=== PATIENT | male | born 1965 | race Caucasian/White ===

== ENCOUNTER 2016-10-23 10:30 | Inpatient (IN) | payer OTHER ==
[~2016-10-23] VITALS: Ht 165.1 cm; Wt 85.6 kg
[~2016-10-23 10:30] MED LIST: TAMS-14 PO
[2016-11-27] VITALS (13 sets, daily range): BP systolic 109–122; BP diastolic 59–73; PULSE 56–64; RESP 6–20; Ht 165.1 cm; Wt 85.6 kg
[2016-11-27] MEDS ORDERED: AMPICILLIN/SULB 3 GM/NS (PMX) 100 ML IVPB ONE (10:00)
[2016-11-27] MEDS ORDERED: SOD CHLORIDE 0.9% 1,000 ML IV SCH (10:00)
[2016-11-27] MEDS ORDERED: SUCCINYLCHOLINE CHLORIDE 100 MG/5 ML SYG IV ONE (12:25)
[2016-11-27] MEDS ORDERED: CEFAZOLIN 1 GM INJ ONE (12:25)
[2016-11-27] MEDS ORDERED: ONDANSETRON 4 MG INJ ONE (12:25)
[2016-11-27] MEDS ORDERED: PROPOFOL 20 ML ONE (12:25)
[2016-11-27] MEDS ORDERED: FENTAnyl 50 MCG/ML VIAL ONE (12:25)
[2016-11-27] MEDS ORDERED: ROCURONIUM 50 MG INJ ONE (12:25)
[2016-11-27] MEDS ORDERED: morphine 1 MG/ML 30 ML (PCA) IV SCH (12:30)
[2016-11-27] MEDS ORDERED: ACETAMINOPHEN 1000MG/100ML IV 100 ML IVPB PRN (12:30)
[2016-11-27] MEDS ORDERED: MEPERIDINE 25 MG INJ IV PRN (13:30)
[2016-11-27] MEDS ORDERED: HYDROmorphONE (0.2 MG/ML) 10ML SYG IV PRN ×2 (13:30)
[2016-11-27] MEDS ORDERED: FENTAnyl 50 MCG/ML VIAL IV PRN ×2 (13:30)
[2016-11-27] MEDS ORDERED: ONDANSETRON 4 MG INJ IV PRN (13:30)
[2016-11-27] MEDS ORDERED: LIDOCAINE 2% JELLY 5 ML ONE (14:24)
[2016-11-27] MEDS: HYDROmorphONE (0.2 MG/ML) 10ML SYG IV PRN ×4 (14:58→15:27)
[2016-11-27] MEDS: D5W-0.45 NACL + KCL 20 MEQ 1,000 ML IV SCH (17:30)
[2016-11-28] VITALS (14 sets, daily range): BP systolic 90–144; BP diastolic 60–76; PULSE 42–80; RESP 16–20
[2016-11-28] MEDS: D5W-0.45 NACL + KCL 20 MEQ 1,000 ML IV SCH ×3 (04:20→12:20)
[2016-11-28] MEDS ORDERED: morphine 10 MG INJ IM PRN (08:30)
[2016-11-28] MEDS ORDERED: SOD CHLORIDE 0.9% 1,000 ML IV ONE (08:30)
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
[2016-11-28 10:52] LABS: INR 1.13; PARTIAL THROMBOPLASTIN TIME 34.2 Sec (25.0-35.0); PROTIME 14.5 Sec (12.2-14.2); PT RATIO 1.1
[2016-11-28 10:53] LABS: CALCIUM 8.4 mg/dl (8.4-10.2); CREATININE 0.71 mg/dl (0.61-1.24); MAGNESIUM 1.7 mg/dl (1.7-2.5); PHOSPHORUS 2.9 mg/dl (2.5-4.9); POTASSIUM 4.4 mmol/L (3.5-5.1)
[2016-11-28 12:25] LABS: ADD SCAN DIFF NO
[2016-11-28 12:31] LABS: BASOPHILS % 0.3 % (0.0-2.0); EOSINOPHILS % 0.3 % (0.0-7.0); HEMATOCRIT 38.1 % (42.0-52.0); HEMOGLOBIN 12.4 g/dl (14.0-18.0); LYMPHOCYTES # 1.5 10^3/ul (0.8-2.9); LYMPHOCYTES % 16.2 % (15.0-51.0); MEAN CORPUSCULAR HEMOGLOBIN 31.2 pg (29.0-33.0); MEAN CORPUSCULAR HGB CONC 32.5 g/dl (32.0-37.0); MEAN CORPUSCULAR VOLUME 95.7 fl (82.0-101.0); MEAN PLATELET VOLUME 10.7 fl (7.4-10.4); MONOCYTE # 0.9 10^3/ul (0.3-0.9); MONOCYTES % 9.8 % (0.0-11.0); NEUTROPHIL # 6.7 10^3/ul (1.6-7.5); NEUTROPHILS % 73.1 % (39.0-77.0); PLATELET COUNT 150 10^3/UL (140-415); RED BLOOD COUNT 3.98 10^6/ul (4.70-6.10); RED CELL DISTRIBUTION WIDTH 13.3 % (11.5-14.5); WHITE BLOOD COUNT 9.2 10^3/ul (4.8-10.8)
--- NOTE | 2016-11-28 12:54 | PN ---
Date/Time of Note Date/Time of Note DATE: 11/28/16 TIME: 12:44 Assessment/Plan VTE Prophylaxis VTE Prophylaxis Intervention: SCD's Lines/Catheters IV Catheter Type (from Nrs): Peripheral IV Assessment/Plan Assessment/Plan 51 years old gentleman. Status post takedown and closure of ileostomy.. This patient had a cancer of the rectum resected in June 2015 because of technical problem of the anastomosis to protect the anastomosis and diverting ileostomy was placed at that time. Being admitted for closure of ileostomy. Today is postop day #1 from other points of view patient is a stable except that has had bradycardia. Php Mysql Web Developer is going to evaluate the patient for this problem. G-tube is in place is draining gastric juice. We will continue NG tube to intermittent suction. Subjective 24 Hr Interval Summary Free Text/Dictation Postop day #1 status post takedown of the ileostomy and closure of the ileostomy. Patient does not have any specific complaint. Has been out of bed to the bathroom and has urinated. Denies nausea vomiting chest pain Apparently has had bradycardia down to 44. Echocardiogram was done tack coverer Dr. Prater going to see the patient for this matter.. Has not had any bowel movement or has not passed any gas. Exam/Review of Systems Vital Signs Vitals Vital Signs Date Time Temp Pulse Resp B/P Pulse Ox O2 Delivery O2 Flow Rate FiO2 11/28/16 08:00 2.0 11/28/16 07:56 98.8 44 16 90/60 97 11/28/16 05:30 Nasal Cannula Intake and Output 11/27/16 11/27/16 11/28/16 15:00 23:00 07:00 Intake Total 1000 ml 1010 ml Output Total 50 ml 5 ml 10 ml Balance 950 ml -5 ml 1000 ml Exam Objective: Patient is alert awake oriented 3. Vital sign is stable of note his heart rate is low at about 44 regular. Abdomen is soft dressing is intact. Epifanio- Early draining serosanguineous fluid. Lower extremity no calf tenderness. SCDs on both legs. Results Result Diagram: 11/28/16 0932 Results 24 hrs Laboratory Tests Test 11/28/16 09:32 11/28/16 12:05 Prothrombin Time 14.5 H Prothrombin Time Ratio 1.1 INR International Normalized Ratio 1.13 Activated Partial Thromboplast Time 34.2 Sodium Level 143 Potassium Level 4.4 Chloride Level 102 Carbon Dioxide Level 28 Anion Gap 17 H Blood Urea Nitrogen 8 Creatinine 0.71 Glucose Level 92 Calcium Level 8.4 Phosphorus Level 2.9 Magnesium Level 1.7 Thyroid Stimulating Hormone (TSH) 3.160 White Blood Count Pending Red Blood Count Pending Hemoglobin Pending Hematocrit Pending Mean Corpuscular Volume Pending Mean Corpuscular Hemoglobin Pending Mean Corpuscular Hemoglobin Concent Pending Red Cell Distribution Width Pending Platelet Count Pending Mean Platelet Volume Pending Medications Medications Current Medications Ondansetron HCl (Zofran Inj) 4 mg Q6H PRN IV NAUSEA AND/OR VOMITING; Start at 12:30 Morphine Sulfate 2 MG/HR CONTINUOUS RATE 2... Q4PCA IV Last administered on 15:27; Admin Dose 30 MG; Start 11/27/16 at 12:30; Status Future Hold Potassium Chloride/Dextrose/ Sod Cl 1,000 ml @ 125 mls/hr Q8H IV Last administered on 11/28/16 04:59; Admin Dose 125 MLS/HR; Start 11/27/16 at 12:20 Acetaminophen (Ofirmev 1000mg/ 100ml Iv) 100 ml @ 400 mls/hr Q6H PRN IVPB PAIN ; Start 11/27/16 at 12:30 Ketorolac Tromethamine (Toradol) 30 mg Q6H PRN IV PAIN; Start 11/28/16 at 08:30 ; Stop 12/01/16 at 08:29 Morphine Sulfate (morphine) 2 mg Q3H PRN IM PAIN 7-10; Start 11/28/16 at 08:30 SANDEE HINDS MD Nov 28, 2016 12:54
--- NOTE | 2016-11-28 17:13 | PN ---
Date/Time of Note Date/Time of Note DATE: 11/28/16 TIME: 17:05 Assessment/Plan VTE Prophylaxis VTE Prophylaxis Intervention: SCD's Lines/Catheters IV Catheter Type (from Nrsg): Peripheral IV Assessment/Plan Chief Complaint/Hosp Course Patient was on a morphine EXTRUDING MACHINE OPERATOR for pain controlled, develop bradycardia to heart related in the 40s, EXTRUDING MACHINE OPERATOR morphine discontinued, given IV bolus BP is stable, patient is transferred to telemetry floor for heart monitoring. Pending cardiac enzymes and twelve-lead EKG. Problems: Assessment/Plan -Bradycardia, Dr. Benoit is following in cardiology consultation, continue telemetry monitoring. -Status post ileostomy reversal by Dr. Hudson on 11/27. Continue morphine and Toradol for pain. Follow-up surgery recommendations. -History of rectal cancer, status post resection, and chemotherapy. -BPH. Further recommendations based on clinical course. Plan of care discussed with Dr. Cho. Exam/Review of Systems Vital Signs Vitals Vital Signs Date Time Temp Pulse Resp B/P Pulse Ox O2 Delivery O2 Flow Rate FiO2 11/28/16 16:11 Nasal Cannula 2.0 11/28/16 16:05 98.8 48 18 111/62 98 Intake and Output 11/27/16 11/27/16 11/28/16 15:00 23:00 07:00 Intake Total 1000 ml 1010 ml Output Total 50 ml 5 ml 10 ml Balance 950 ml -5 ml 1000 ml Exam Constitutional: alert, oriented Head: normocephalic Neck: supple Respiratory: normal air movement Cardiovascular: nl pulses, other (Bradycardia) Gastrointestinal: other (Status post surgery) Extremities: normal pulses Neurological: nl mental status Results Result Diagram: 11/28/16 1205 11/28/16 0932 Results 24 hrs Laboratory Tests Test 11/28/16 09:32 11/28/16 12:05 Prothrombin Time 14.5 H Prothrombin Time Ratio 1.1 INR International Normalized Ratio 1.13 Activated Partial Thromboplast Time 34.2 Sodium Level 143 Potassium Level 4.4 Chloride Level 102 Carbon Dioxide Level 28 Anion Gap 17 H Blood Urea Nitrogen 8 Creatinine 0.71 Glucose Level 92 Calcium Level 8.4 Phosphorus Level 2.9 Magnesium Level 1.7 Thyroid Stimulating Hormone (TSH) 3.160 White Blood Count 9.2 # Red Blood Count 3.98 L Hemoglobin 12.4 L Hematocrit 38.1 L Mean Corpuscular Volume 95.7 Mean Corpuscular Hemoglobin 31.2 Mean Corpuscular Hemoglobin Concent 32.5 Red Cell Distribution Width 13.3 Platelet Count 150 Mean Platelet Volume 10.7 H Neutrophils % 73.1 Lymphocytes % 16.2 Monocytes % 9.8 Eosinophils % 0.3 Basophils % 0.3 Neutrophils # 6.7 Lymphocytes # 1.5 Monocytes # 0.9 Eosinophils # 0.0 Basophils # 0.0 Nucleated Red Blood Cells # 0.0 Medications Medications Current Medications Ondansetron HCl 4 mg 4 mg Q6H PRN IV NAUSEA AND/OR VOMITING; Start 11/27/16 at 12:30 Potassium Chloride/Dextrose/ Sod Cl 1,000 ml @ 125 mls/hr Q8H IV Last administered on 11/28/16t 04:59; Admin Dose 125 MLS/HR; Start 11/27/16 at 12:20 Acetaminophen (Ofirmev 1000mg/ 100ml Iv) 100 ml @ 400 mls/hr Q6H PRN IVPB PAIN ; Start 11/27/16 at 12:30 Ketorolac Tromethamine (Toradol) 30 mg Q6H PRN IV PAIN; Start 11/28/16 at 08:30 ; Stop 12/01/16 at 08:29 Morphine Sulfate (morphine) 2 mg Q3H PRN IM PAIN 7-10; Start 11/28/16 at 08:30 HEAVEN MARRERO Nov 28, 2016 17:13
--- NOTE | 2016-11-28 19:03 | RADRPT ---
Echocardiogram Report Patient Name: JORDY PEOPLES Gender: Male Date: 1965 Study Date: 28-Nov-2016 Necktie Maker: [facility] Location: 601 Ref. Physician: MIKE WOODS Quality: Adequate Procedures: Transthoracic echocardiogram with complete 2D, M-Mode, and doppler examination. Indications: Low HR. 2D/M Mode Doppler Measurement Value Normal Ranges Measurement Value Normal Ranges LVIDd 2D 5.2 3.5 - 5.6 cm AV Peak Moisés 1.5 m/sec LVIDs 2D 3.5 2.1 - 4.1 cm AV Peak PG 9.0 mmHg FS 2D 32.5 % LVOT Peak Moisés 1.2 m/sec LVPWd 2D 1.1 0.6 - 1.1 cm LVOT Peak PG 6.0 mmHg IVSd 2D 1.1 0.6 - 1.1 cm MV E Peak Moisés 0.5 m/sec IVS/LVPW 2D 1.0 MV A Peak Moisés 1.0 m/sec AoR Diam 2D 3.3 2.0 - 3.7 cm MV E/A 0.5 LA/Ao 2D 1 0 - 1 MV Decel Time 296 msec EDV 2D 143.0 cm3 MV E/A 0.5 ESV 2D 44.0 cm3 LA Dimen 2D 4.3 2.3 - 4.0 cm Findings Left Ventricle: Normal left ventricular systolic function. Normal left ventricular cavity size. Normal left ventricular wall thickness. Ejection fraction is visually estimated at 60 %. Abnormal Diastolic Function. Right Ventricle: Normal right ventricular size. Normal right ventricular systolic function. Left Atrium: The left atrium is normal in size. Right Atrium: The right atrium is normal in size. Mitral Valve: Mild mitral leaflet calcification. Mild mitral annular calcification. Trace mitral regurgitation. Aortic Valve: Normal appearance of the aortic valve. No significant aortic stenosis or insufficiency. Tricuspid Valve: Normal appearance and function of the tricuspid valve with trace physiologic regurgitation. Unable to obtain RVSP due to minimal presence of tricuspid regurgitation. Pulmonic Valve: Pulmonic valve not well visualized. There is trace pulmonic regurgitation. Pericardium: Normal pericardium with no significant pericardial effusion. Aorta: Normal aortic root. IVC: Normal size and normal respiratory collapse consistent with normal right atrial pressure. Conclusions 1.Normal left ventricular systolic function. Normal left ventricular cavity size. Normal left ventricular wall thickness. Ejection fraction is visually estimated at 60 %. Abnormal Diastolic Function. 2.Mild mitral leaflet calcification. Mild mitral annular calcification. Trace mitral regurgitation. 3.Normal appearance and function of the tricuspid valve with trace physiologic regurgitation. Unable to obtain RVSP due to minimal presence of tricuspid regurgitation. 4.Pulmonic valve not well visualized. There is trace pulmonic regurgitation. Electronically Signed By: Marty Benoit 28-Nov-2016 19:02:32 -0700 Patient Name: JORDY PEOPLES Study Date: 28-Nov-2016 [id number]
[2016-11-28] MEDS: KETOROLAC 30 MG INJ IV PRN (19:59)
[2016-11-29] VITALS (11 sets, daily range): BP systolic 104–138; BP diastolic 61–72; PULSE 49–58; RESP 17–19
[2016-11-29] MEDS: D5W-0.45 NACL + KCL 20 MEQ 1,000 ML IV SCH ×3 (01:53→22:07)
[2016-11-29] MEDS: KETOROLAC 30 MG INJ IV PRN ×2 (01:53→13:01)
[2016-11-29] MEDS: ONDANSETRON 4 MG INJ IV PRN (06:54)
[2016-11-29 08:39] LABS: WHITE BLOOD COUNT 10.3 10^3/ul (4.8-10.8)
[2016-11-29 08:40] LABS: BASOPHILS % 0.3 % (0.0-2.0); EOSINOPHILS # 0.1 10^3/ul (0.0-0.5); EOSINOPHILS % 0.6 % (0.0-7.0); HEMATOCRIT 42.2 % (42.0-52.0); LYMPHOCYTES # 1.5 10^3/ul (0.8-2.9); LYMPHOCYTES % 14.1 % (15.0-51.0); MEAN CORPUSCULAR HEMOGLOBIN 31.2 pg (29.0-33.0); MEAN CORPUSCULAR HGB CONC 33.2 g/dl (32.0-37.0); MEAN PLATELET VOLUME 12.5 fl (7.4-10.4); MONOCYTES % 9.3 % (0.0-11.0); NEUTROPHIL # 7.7 10^3/ul (1.6-7.5); NEUTROPHILS % 75.4 % (39.0-77.0); PLATELET COUNT 121 10^3/UL (140-415); RED BLOOD COUNT 4.49 10^6/ul (4.70-6.10); RED CELL DISTRIBUTION WIDTH 12.9 % (11.5-14.5)
[2016-11-29 08:56] LABS: CALCIUM 9.2 mg/dl (8.4-10.2); CREATININE 0.72 mg/dl (0.61-1.24); MAGNESIUM 1.9 mg/dl (1.7-2.5); PHOSPHORUS 2.5 mg/dl (2.5-4.9); POTASSIUM 3.9 mmol/L (3.5-5.1)
[2016-11-29 09:12] LABS: INR 1.11; PROTIME 14.3 Sec (12.2-14.2); PT RATIO 1.1
[2016-11-29 09:13] LABS: PARTIAL THROMBOPLASTIN TIME 33.5 Sec (25.0-35.0)
--- NOTE | 2016-11-29 14:46 | CONS ---
Date/Time of Note Date/Time of Note DATE: 11/29/16 TIME: 14:44 Assessment/Plan Assessment/Plan Additional Assessment/Plan Sinus Bradycardia likely from morphine Status post ileostomy reversal History of rectal cancer, status post resection and chemotherapy. BPH. Tele monitor shows sinus bradycardia Avoid sedative and narcotics Consultation Date/Type/Reason Admit Date/Time Nov 27, 2016 at 09:45 Social History Smoking Status: Former smoker Exam/Review of Systems Vital Signs Vitals Vital Signs Date Time Temp Pulse Resp B/P Pulse Ox O2 Delivery O2 Flow Rate FiO2 11/29/16 12:29 58 11/29/16 11:56 99.0 17 131/71 92 11/29/16 08:20 Nasal Cannula 2.0 Intake and Output 11/28/16 11/28/16 11/29/16 15:00 23:00 07:00 Intake Total 1000 ml 82995 ml Output Total 1100 ml Balance 1000 ml 9175 ml Exam Constitutional: alert Head: atraumatic, normocephalic Neck: non-tender, supple Respiratory: clear to auscultation Cardiovascular: regular rate and rhythm Gastrointestinal: nl liver, spleen, non-tender, soft Extremities: normal pulses Results Result Diagram: 11/29/16 0723 11/29/16 0723 Results 24 hrs Laboratory Tests Test 11/28/16 17:50 11/29/16 01:20 11/29/16 06:28 11/29/16 07:23 Troponin I < 0.012 < 0.012 Lab Scanned Report REFERENCE LAB White Blood Count 10.3 Red Blood Count 4.49 L Hemoglobin 14.0 Hematocrit 42.2 Mean Corpuscular Volume 94.0 Mean Corpuscular Hemoglobin 31.2 Mean Corpuscular Hemoglobin Concent 33.2 Red Cell Distribution Width 12.9 Platelet Count 121 L Mean Platelet Volume 12.5 H Neutrophils % 75.4 Lymphocytes % 14.1 L Monocytes % 9.3 Eosinophils % 0.6 Basophils % 0.3 Nucleated Red Blood Cells % 0.0 Neutrophils # 7.7 H Lymphocytes # 1.5 Monocytes # 1.0 H Eosinophils # 0.1 Basophils # 0.0 Nucleated Red Blood Cells # 0.0 Prothrombin Time 14.3 H Prothrombin Time Ratio 1.1 INR International Normalized Ratio 1.11 Activated Partial Thromboplast Time 33.5 Sodium Level 143 Potassium Level 3.9 Chloride Level 100 Carbon Dioxide Level 28 Anion Gap 19 H Blood Urea Nitrogen 5 L Creatinine 0.72 Glucose Level 105 Calcium Level 9.2 Phosphorus Level 2.5 Magnesium Level 1.9 Triglycerides Level 92 Cholesterol Level 176 LDL Cholesterol, Calculated 115 HDL Cholesterol 43 Cholesterol/HDL Ratio 4.0 Medications Medications Current Medications Ondansetron HCl 4 mg 4 mg Q6H PRN IV NAUSEA AND/OR VOMITING Last administered on 11/29/16 06:54; Admin Dose 4 MG; Start 11/27/16 at 12:30 Potassium Chloride/Dextrose/ Sod Cl 1,000 ml @ 125 mls/hr Q8H IV Last administered on 11/29/16 13:01; Admin Dose 125 MLS/HR; Start 11/27/16 at 12:20 Acetaminophen (Ofirmev 1000mg/ 100ml Iv) 100 ml @ 400 mls/hr Q6H PRN IVPB PAIN ; Start 11/27/16 at 12:30 Ketorolac Tromethamine (Toradol) 30 mg Q6H PRN IV PAIN Last administered on 13:01; Admin Dose 30 MG; Start 11/28/16 at 08:30; Stop 12/01/16 at 08:29 Morphine Sulfate (morphine) 2 mg Q3H PRN IM PAIN 7-10; Start 11/28/16 at 08:30 HERMES STRATTON M.D. Nov 29, 2016 14:46
--- NOTE | 2016-11-29 15:01 | PN ---
Date/Time of Note Date/Time of Note DATE: 11/29/16 TIME: 14:47 Assessment/Plan VTE Prophylaxis VTE Prophylaxis Intervention: SCD's Lines/Catheters IV C[facility]ter Type ([facility] Peripheral IV Urinary Cath still in place: No Assessment/Plan Assessment/Plan 51 years old man status post resection and takedown of the loop ileostomy. Postop day #2. Patient has been stable since operation. The NG drainage is not bilious. Today he has past few pieces of gas per rectum. Abdomen is soft. Lab results are stable and no leukocytosis. Plan, to get the patient out of bed. To start ice chips by mouth. Ambulates. Whenever has a bowel movement we are going to then remove the NG tube. Subjective 24 Hr Interval Summary Free Text/Dictation Postop day #2. No new complaints. States that has passed a little bit of gas. No bowel movement has not been out of bed yet but is planning to get him out of bed today. Exam/Review of Systems Vital Signs Vitals Vital Signs Date Time Temp Pulse Resp B/P Pulse Ox O2 Delivery O2 Flow Rate FiO2 11/29/16 12:29 58 11/29/16 11:56 99.0 17 131/71 92 11/29/16 08:20 Nasal Cannula 2.0 Intake and Output 11/28/16 11/28/16 11/29/16 15:00 23:00 07:00 Intake Total 1000 ml 52613 ml Output Total 1100 ml Balance 1000 ml 9175 ml Results Postop day #2. Status post resection and takedown of the ileostomy loop. Vital sign is stable. Still has bradycardia but a little bit better than yesterday. NG tube has drained clear gastric juice. The machine is not functioning I on intermittent suction. Will keep it on 35 suction power continues. Abdomen is soft bowel swelling 2+/4+. Epifanio-Early drain drained 20 cc of serosanguineous fluid in 24 hours. No calf tenderness. S .c.d. in place. Result Diagram: 11/29/1672211/29/16 0723 Results 24 hrs Laboratory Tests Test 11/28/16 17:50 11/29/16 01:20 11/29/16 06:28 11/29/16 07:23 Troponin I < 0.012 < 0.012 Lab Scanned Report REFERENCE LAB White Blood Count 10.3 Red Blood Count 4.49 L Hemoglobin 14.0 Hematocrit 42.2 Mean Corpuscular Volume 94.0 Mean Corpuscular Hemoglobin 31.2 Mean Corpuscular Hemoglobin Concent 33.2 Red Cell Distribution Width 12.9 Platelet Count 121 L Mean Platelet Volume 12.5 H Neutrophils % 75.4 Lymphocytes % 14.1 L Monocytes % 9.3 Eosinophils % 0.6 Basophils % 0.3 Nucleated Red Blood Cells % 0.0 Neutrophils # 7.7 H Lymphocytes # 1.5 Monocytes # 1.0 H Eosinophils # 0.1 Basophils # 0.0 Nucleated Red Blood Cells # 0.0 Prothrombin Time 14.3 H Prothrombin Time Ratio 1.1 INR International Normalized Ratio 1.11 Activated Partial Thromboplast Time 33.5 Sodium Level 143 Potassium Level 3.9 Chloride Level 100 Carbon Dioxide Level 28 Anion Gap 19 H Blood Urea Nitrogen 5 L Creatinine 0.72 Glucose Level 105 Calcium Level 9.2 Phosphorus Level 2.5 Magnesium Level 1.9 Triglycerides Level 92 Cholesterol Level 176 LDL Cholesterol, Calculated 115 HDL Cholesterol 43 Cholesterol/HDL Ratio 4.0 Medications Medications Current Medications Ondansetron HCl 4 mg 4 mg Q6H PRN IV NAUSEA AND/OR VOMITING Last administered on 11/29/16 06:54; Admin Dose 4 MG; Start 11/27/16 at 12:30 Potassium Chloride/Dextrose/ Sod Cl 1,000 ml @ 125 mls/hr Q8H IV Last administered on 11/29/16 13:01; Admin Dose 125 MLS/HR; Start 11/27/16 at 12:20 Acetaminophen (Ofirmev 1000mg/ 100ml Iv) 100 ml @ 400 mls/hr Q6H PRN IVPB PAIN ; Start 11/27/16 at 12:30 Ketorolac Tromethamine (Toradol) 30 mg Q6H PRN IV PAIN Last administered on 13:01; Admin Dose 30 MG; Start 11/28/16 at 08:30; Stop 12/01/16 at 08:29 Morphine Sulfate (morphine) 2 mg Q3H PRN IM PAIN 7-10; Start 11/28/16 at 08:30 SANDEE HINDS MD Nov 29, 2016 14:59
--- NOTE | 2016-11-29 15:53 | PN ---
Date/Time of Note Date/Time of Note DATE: 11/29/16 TIME: 15:52 Assessment/Plan VTE Prophylaxis VTE Prophylaxis Intervention: SCD's Lines/Catheters IV Catheter Type (from Nrsg): Peripheral IV Urinary Cath still in place: No Assessment/Plan Assessment/Plan -Bradycardia, Dr. Benoit is following in cardiology consultation, continue telemetry monitoring. -Status post ileostomy reversal by Dr. Hudson on 11/27. Continue morphine and Toradol for pain. Follow-up surgery recommendations. -History of rectal cancer, status post resection, and chemotherapy. -BPH. Further recommendations based on clinical course. Plan of care discussed with Dr. Cho. Subjective 24 Hr Interval Summary Free Text/Dictation resting, afebrile, denies chest pain, c/o surgical pain at time but beter with pain med- Surgery follows- staff Constitutional: requiring O2 Eyes: no complaints ENT: no complaints Respiratory: no complaints Cardiovascular: no complaints Gastrointestinal: pain (post op pain) Musculoskeletal: no complaints Neurologic: no complaints Exam/Review of Systems Vital Signs Vitals Vital Signs Date Time Temp Pulse Resp B/P Pulse Ox O2 Delivery O2 Flow Rate FiO2 11/29/16 12:29 58 11/29/16 11:56 99.0 17 131/71 92 11/29/16 08:20 Nasal Cannula 2.0 Intake and Output 11/28/16 11/28/16 11/29/16 15:00 23:00 07:00 Intake Total 1000 ml 34307 ml Output Total 1100 ml Balance 1000 ml 9175 ml Exam Constitutional: alert, oriented Respiratory: clear to auscultation, normal air movement Cardiovascular: nl pulses, regular rate and rhythm Gastrointestinal: non-tender, soft Musculoskeletal: nl extremities to inspection Neurological: nl mental status, nl speech Results Result Diagram: 11/29/16 0723 11/29/16 0723 Results 24 hrs Laboratory Tests Test 11/28/16 17:50 11/29/16 01:20 11/29/16 06:28 11/29/16 07:23 Troponin I < 0.012 < 0.012 Lab Scanned Report REFERENCE LAB White Blood Count 10.3 Red Blood Count 4.49 L Hemoglobin 14.0 Hematocrit 42.2 Mean Corpuscular Volume 94.0 Mean Corpuscular Hemoglobin 31.2 Mean Corpuscular Hemoglobin Concent 33.2 Red Cell Distribution Width 12.9 Platelet Count 121 L Mean Platelet Volume 12.5 H Neutrophils % 75.4 Lymphocytes % 14.1 L Monocytes % 9.3 Eosinophils % 0.6 Basophils % 0.3 Nucleated Red Blood Cells % 0.0 Neutrophils # 7.7 H Lymphocytes # 1.5 Monocytes # 1.0 H Eosinophils # 0.1 Basophils # 0.0 Nucleated Red Blood Cells # 0.0 Prothrombin Time 14.3 H Prothrombin Time Ratio 1.1 INR International Normalized Ratio 1.11 Activated Partial Thromboplast Time 33.5 Sodium Level 143 Potassium Level 3.9 Chloride Level 100 Carbon Dioxide Level 28 Anion Gap 19 H Blood Urea Nitrogen 5 L Creatinine 0.72 Glucose Level 105 Calcium Level 9.2 Phosphorus Level 2.5 Magnesium Level 1.9 Triglycerides Level 92 Cholesterol Level 176 LDL Cholesterol, Calculated 115 HDL Cholesterol 43 Cholesterol/HDL Ratio 4.0 Medications Medications Current Medications Ondansetron HCl 4 mg 4 mg Q6H PRN IV NAUSEA AND/OR VOMITING Last administered on 11/29/16 06:54; Admin Dose 4 MG; Start 11/27/16 at 12:30 Potassium Chloride/Dextrose/ Sod Cl 1,000 ml @ 125 mls/hr Q8H IV Last administered on 11/29/16 13:01; Admin Dose 125 MLS/HR; Start 11/27/16 at 12:20 Acetaminophen (Ofirmev 1000mg/ 100ml Iv) 100 ml @ 400 mls/hr Q6H PRN IVPB PAIN ; Start 11/27/16 at 12:30 Ketorolac Tromethamine (Toradol) 30 mg Q6H PRN IV PAIN Last administered on 13:01; Admin Dose 30 MG; Start 11/28/16 at 08:30; Stop 12/01/16 at 08:29 Morphine Sulfate (morphine) 2 mg Q3H PRN IM PAIN 7-10; Start 11/28/16 at 08:30 KIMBERLEE SPEARS Nov 29, 2016 15:53
[2016-11-30] VITALS (12 sets, daily range): BP systolic 101–135; BP diastolic 59–74; PULSE 48–71; RESP 16–18
[2016-11-30] MEDS: D5W-0.45 NACL + KCL 20 MEQ 1,000 ML IV SCH ×3 (06:04→14:40)
[2016-11-30 06:43] LABS: BASOPHILS % 0.3 % (0.0-2.0); EOSINOPHILS # 0.1 10^3/ul (0.0-0.5); EOSINOPHILS % 0.4 % (0.0-7.0); HEMATOCRIT 42.3 % (42.0-52.0); HEMOGLOBIN 14.2 g/dl (14.0-18.0); LYMPHOCYTES # 1.5 10^3/ul (0.8-2.9); LYMPHOCYTES % 12.2 % (15.0-51.0); MEAN CORPUSCULAR HEMOGLOBIN 31.1 pg (29.0-33.0); MEAN CORPUSCULAR HGB CONC 33.6 g/dl (32.0-37.0); MEAN CORPUSCULAR VOLUME 92.8 fl (82.0-101.0); MEAN PLATELET VOLUME 12.9 fl (7.4-10.4); MONOCYTE # 1.1 10^3/ul (0.3-0.9); MONOCYTES % 8.9 % (0.0-11.0); NEUTROPHIL # 9.3 10^3/ul (1.6-7.5); NEUTROPHILS % 77.9 % (39.0-77.0); PLATELET COUNT 100 10^3/UL (140-415); RED BLOOD COUNT 4.56 10^6/ul (4.70-6.10); RED CELL DISTRIBUTION WIDTH 12.7 % (11.5-14.5); WHITE BLOOD COUNT 11.9 10^3/ul (4.8-10.8)
[2016-11-30 07:19] LABS: CALCIUM 8.9 mg/dl (8.4-10.2); CREATININE 0.77 mg/dl (0.61-1.24); POTASSIUM 3.6 mmol/L (3.5-5.1)
[2016-11-30] MEDS: ONDANSETRON 4 MG INJ IV PRN ×2 (08:17→14:39)
[2016-11-30 12:10] LABS: ABNORMAL IP MESSAGE 1; BASOPHILS % 0.3 % (0.0-2.0); EOSINOPHILS % 0.2 % (0.0-7.0); HEMATOCRIT 41.2 % (42.0-52.0); HEMOGLOBIN 14.3 g/dl (14.0-18.0); LYMPHOCYTES # 1.2 10^3/ul (0.8-2.9); MEAN CORPUSCULAR HEMOGLOBIN 31.4 pg (29.0-33.0); MEAN CORPUSCULAR HGB CONC 34.7 g/dl (32.0-37.0); MEAN CORPUSCULAR VOLUME 90.5 fl (82.0-101.0); MEAN PLATELET VOLUME 12.7 fl (7.4-10.4); NEUTROPHIL # 9.8 10^3/ul (1.6-7.5); NEUTROPHILS % 81.1 % (39.0-77.0); PLATELET COUNT 91 10^3/UL (140-415); POSITIVE DIFF @See below; RED BLOOD COUNT 4.55 10^6/ul (4.70-6.10); RED CELL DISTRIBUTION WIDTH 12.4 % (11.5-14.5)
[2016-11-30 12:31] LABS: INR 1.11; PROTIME 14.3 Sec (12.2-14.2); PT RATIO 1.1
[2016-11-30 12:32] LABS: PARTIAL THROMBOPLASTIN TIME 32.1 Sec (25.0-35.0)
[2016-11-30 12:33] LABS: CREATININE 0.71 mg/dl (0.61-1.24); MAGNESIUM 1.7 mg/dl (1.7-2.5); PHOSPHORUS 2.8 mg/dl (2.5-4.9); POTASSIUM 3.8 mmol/L (3.5-5.1)
--- NOTE | 2016-11-30 13:12 | PN ---
Date/Time of Note Date/Time of Note DATE: 11/30/16 TIME: 13:11 Assessment/Plan VTE Prophylaxis VTE Prophylaxis Intervention: other Lines/Catheters IV Catheter Type (from [facility]): Peripheral IV Urinary Cath still in place: No Assessment/Plan Assessment/Plan -Bradycardia, Dr. Benoit is following in cardiology consultation, continue telemetry monitoring. -Status post ileostomy reversal by Dr. Hudson on 11/27. Continue morphine and Toradol for pain. Follow-up surgery recommendations. -History of rectal cancer, status post resection, and chemotherapy. -BPH. Further recommendations based on clinical course. Plan of care discussed with Dr. Cho. Subjective 24 Hr Interval Summary Respiratory: no complaints Cardiovascular: no complaints Gastrointestinal: pain Musculoskeletal: no complaints Skin: other Exam/Review of Systems Vital Signs Vitals Vital Signs Date Time Temp Pulse Resp B/P Pulse Ox O2 Delivery O2 Flow Rate FiO2 11/30/16 12:31 56 11/30/16 11:47 97.7 16 135/74 93 11/30/16 07:45 Nasal Cannula 2.0 Intake and Output 11/29/16 11/29/16 11/30/16 15:00 23:00 07:00 Intake Total 1000 ml 1520 ml 1200 ml Output Total 1205 ml 1357 ml Balance 1000 ml 315 ml -157 ml Exam Constitutional: alert, oriented, well developed Respiratory: clear to auscultation, normal air movement Cardiovascular: nl pulses, regular rate and rhythm Gastrointestinal: other (SP SURGERY), soft Musculoskeletal: nl extremities to inspection Extremities: normal pulses Skin: other Results Result Diagram: 11/30/16 1145 11/30/16 1145 Results 24 hrs Laboratory Tests Test 11/30/16 05:46 11/30/16 11:45 White Blood Count 11.9 H 12.0 H Red Blood Count 4.56 L 4.55 L Hemoglobin 14.2 14.3 Hematocrit 42.3 41.2 L Mean Corpuscular Volume 92.8 90.5 Mean Corpuscular Hemoglobin 31.1 31.4 Mean Corpuscular Hemoglobin Concent 33.6 34.7 Red Cell Distribution Width 12.7 12.4 Platelet Count 100 L 91 L Mean Platelet Volume 12.9 H 12.7 H Neutrophils % 77.9 H 81.1 H Lymphocytes % 12.2 L 10.0 L Monocytes % 8.9 8.0 Eosinophils % 0.4 0.2 Basophils % 0.3 0.3 Nucleated Red Blood Cells % 0.0 0.0 Neutrophils # 9.3 H 9.8 H Lymphocytes # 1.5 1.2 Monocytes # 1.1 H 1.0 H Eosinophils # 0.1 0.0 Basophils # 0.0 0.0 Nucleated Red Blood Cells # 0.0 0.0 Sodium Level 143 142 Potassium Level 3.6 3.8 Chloride Level 102 102 Carbon Dioxide Level 28 26 Anion Gap 17 H 18 H Blood Urea Nitrogen 4 L 3 L Creatinine 0.77 0.71 Glucose Level 120 125 Calcium Level 8.9 9.0 Prothrombin Time 14.3 H Prothrombin Time Ratio 1.1 INR International Normalized Ratio 1.11 Activated Partial Thromboplast Time 32.1 Phosphorus Level 2.8 Magnesium Level 1.7 Medications Medications Current Medications Ondansetron HCl 4 mg 4 mg Q6H PRN IV NAUSEA AND/OR VOMITING Last administered on 11/30/16 08:17; Admin Dose 4 MG; Start 11/27/16 at 12:30 Potassium Chloride/Dextrose/ Sod Cl 1,000 ml @ 125 mls/hr Q8H IV Last administered on 11/30/16 06:04; Admin Dose 125 MLS/HR; Start 11/27/16 at 12:20 Acetaminophen (Ofirmev 1000mg/ 100ml Iv) 100 ml @ 400 mls/hr Q6H PRN IVPB PAIN Last administered on 11/29/16 20:17; Admin Dose 400 MLS/HR; Start at 12:30 Ketorolac Tromethamine (Toradol) 30 mg Q6H PRN IV PAIN Last administered on 13:01; Admin Dose 30 MG; Start 11/28/16 at 08:30; Stop 12/01/16 at 08:29 Morphine Sulfate (morphine) 2 mg Q3H PRN IM PAIN 7-10 Last administered on 11/30 10:49; Admin Dose 2 MG; Start 11/28/16 at 08:30 KIMBERLEE SPEARS Nov 30, 2016 13:12
--- NOTE | 2016-11-30 13:19 | CONS ---
Date/Time of Note Date/Time of Note DATE: 11/30/16 TIME: 13:18 Assessment/Plan Assessment/Plan Additional Assessment/Plan Sinus Bradycardia likely from morphine Status post ileostomy reversal History of rectal cancer, status post resection and chemotherapy. BPH. Tele monitor shows sinus bradycardia Hemodynamically stable Avoid sedative and narcotics Consultation Date/Type/Reason Admit Date/Time Nov 27, 2016 at 09:45 Initial Consult Date Exam/Review of Systems Vital Signs Vitals Vital Signs Date Time Temp Pulse Resp B/P Pulse Ox O2 Delivery O2 Flow Rate FiO2 11/30/16 12:31 56 11/30/16 11:47 97.7 16 135/74 93 11/30/16 07:45 Nasal Cannula 2.0 Intake and Output 11/29/16 11/29/16 11/30/16 15:00 23:00 07:00 Intake Total 1000 ml 1520 ml 1200 ml Output Total 1205 ml 1357 ml Balance 1000 ml 315 ml -157 ml Exam Head: atraumatic, normocephalic Neck: non-tender, supple Respiratory: clear to auscultation Cardiovascular: regular rate and rhythm Gastrointestinal: nl liver, spleen, non-tender, soft Extremities: normal pulses Results Result Diagram: 11/30/16 1145 11/30/16 1145 Results 24 hrs Laboratory Tests Test 11/30/16 05:46 11/30/16 11:45 White Blood Count 11.9 H 12.0 H Red Blood Count 4.56 L 4.55 L Hemoglobin 14.2 14.3 Hematocrit 42.3 41.2 L Mean Corpuscular Volume 92.8 90.5 Mean Corpuscular Hemoglobin 31.1 31.4 Mean Corpuscular Hemoglobin Concent 33.6 34.7 Red Cell Distribution Width 12.7 12.4 Platelet Count 100 L 91 L Mean Platelet Volume 12.9 H 12.7 H Neutrophils % 77.9 H 81.1 H Lymphocytes % 12.2 L 10.0 L Monocytes % 8.9 8.0 Eosinophils % 0.4 0.2 Basophils % 0.3 0.3 Nucleated Red Blood Cells % 0.0 0.0 Neutrophils # 9.3 H 9.8 H Lymphocytes # 1.5 1.2 Monocytes # 1.1 H 1.0 H Eosinophils # 0.1 0.0 Basophils # 0.0 0.0 Nucleated Red Blood Cells # 0.0 0.0 Sodium Level 143 142 Potassium Level 3.6 3.8 Chloride Level 102 102 Carbon Dioxide Level 28 26 Anion Gap 17 H 18 H Blood Urea Nitrogen 4 L 3 L Creatinine 0.77 0.71 Glucose Level 120 125 Calcium Level 8.9 9.0 Prothrombin Time 14.3 H Prothrombin Time Ratio 1.1 INR International Normalized Ratio 1.11 Activated Partial Thromboplast Time 32.1 Phosphorus Level 2.8 Magnesium Level 1.7 Medications Medications Current Medications Ondansetron HCl 4 mg 4 mg Q6H PRN IV NAUSEA AND/OR VOMITING Last administered on 11/30/16 08:17; Admin Dose 4 MG; Start 11/27/16 at 12:30 Potassium Chloride/Dextrose/ Sod Cl 1,000 ml @ 125 mls/hr Q8H IV Last administered on 11/30/16 06:04; Admin Dose 125 MLS/HR; Start 11/27/16 at 12:20 Acetaminophen (Ofirmev 1000mg/ 100ml Iv) 100 ml @ 400 mls/hr Q6H PRN IVPB PAIN Last administered on 11/29/16 20:17; Admin Dose 400 MLS/HR; Start at 12:30 Ketorolac Tromethamine (Toradol) 30 mg Q6H PRN IV PAIN Last administered on 13:01; Admin Dose 30 MG; Start 11/28/16 at 08:30; Stop 12/01/16 at 08:29 Morphine Sulfate (morphine) 2 mg Q3H PRN IM PAIN 7-10 Last administered on 11/30 10:49; Admin Dose 2 MG; Start 11/28/16 at 08:30 HERMES STRATTON M.D. Nov 30, 2016 13:19
--- NOTE | 2016-11-30 14:03 | PN ---
Date/Time of Note Date/Time of Note DATE: 11/30/16 TIME: 13:56 Assessment/Plan VTE Prophylaxis VTE Prophylaxis Intervention: SCD's Lines/Catheters [facility]ter Type (from [facility]): Peripheral IV Urinary Cath still in place: No Assessment/Plan Assessment/Plan 51-year-old gentleman status post closure of ileostomy postop day #3. GI function has not come back yet no bowel movement no real flatus. . Considering leukocytosis and temperatures up to 99.9 I am planning to start patient on antibiotics. . Keep NG tube in place. . And the nurse was advised to make sure that the patient gets out of bed and walks around. Subjective 24 Hr Interval Summary Free Text/Dictation Today's November 30, 2016. Postop day #3. Status post takedown of the ileostomy and end to end anastomosis. No other specific complaint. States that today morning past minimal amount of gas. Exam/Review of Systems Vital Signs Vitals Vital Signs Date Time Temp Pulse Resp B/P Pulse Ox O2 Delivery O2 Flow Rate FiO2 11/30/16 12:31 56 11/30/16 11:47 97.7 16 135/74 93 11/30/16 07:45 Nasal Cannula 2.0 Intake and Output 11/29/16 11/29/16 11/30/16 15:00 23:00 07:00 Intake Total 1000 ml 1520 ml 1200 ml Output Total 1205 ml 1357 ml Balance 1000 ml 315 ml -157 ml Exam Postop day #3. Patient alert awake oriented 3. Temperature maximum 99.9 today. WBC increased to 12,200 with 81% neutrophils. . NG tube draining gastric juice collarless. Heart rate 56 regular. Abdomen soft no guarding. Lower extremities no calf tenderness. SCDs are on. Results Result Diagram: 11/30/16 1145 11/30/16 1145 Results 24 hrs Laboratory Tests Test 11/30/16 05:46 11/30/16 11:45 White Blood Count 11.9 H 12.0 H Red Blood Count 4.56 L 4.55 L Hemoglobin 14.2 14.3 Hematocrit 42.3 41.2 L Mean Corpuscular Volume 92.8 90.5 Mean Corpuscular Hemoglobin 31.1 31.4 Mean Corpuscular Hemoglobin Concent 33.6 34.7 Red Cell Distribution Width 12.7 12.4 Platelet Count 100 L 91 L Mean Platelet Volume 12.9 H 12.7 H Neutrophils % 77.9 H 81.1 H Lymphocytes % 12.2 L 10.0 L Monocytes % 8.9 8.0 Eosinophils % 0.4 0.2 Basophils % 0.3 0.3 Nucleated Red Blood Cells % 0.0 0.0 Neutrophils # 9.3 H 9.8 H Lymphocytes # 1.5 1.2 Monocytes # 1.1 H 1.0 H Eosinophils # 0.1 0.0 Basophils # 0.0 0.0 Nucleated Red Blood Cells # 0.0 0.0 Sodium Level 143 142 Potassium Level 3.6 3.8 Chloride Level 102 102 Carbon Dioxide Level 28 26 Anion Gap 17 H 18 H Blood Urea Nitrogen 4 L 3 L Creatinine 0.77 0.71 Glucose Level 120 125 Calcium Level 8.9 9.0 Prothrombin Time 14.3 H Prothrombin Time Ratio 1.1 INR International Normalized Ratio 1.11 Activated Partial Thromboplast Time 32.1 Phosphorus Level 2.8 Magnesium Level 1.7 Medications Medications Current Medications Ondansetron HCl 4 mg 4 mg Q6H PRN IV NAUSEA AND/OR VOMITING Last administered on 11/30/16 08:17; Admin Dose 4 MG; Start 11/27/16 at 12:30 Potassium Chloride/Dextrose/ Sod Cl 1,000 ml @ 125 mls/hr Q8H IV Last administered on 11/30/16 06:04; Admin Dose 125 MLS/HR; Start 11/27/16 at 12:20 Acetaminophen (Ofirmev 1000mg/ 100ml Iv) 100 ml @ 400 mls/hr Q6H PRN IVPB PAIN Last administered on 11/29/16 20:17; Admin Dose 400 MLS/HR; Start at 12:30 Ketorolac Tromethamine (Toradol) 30 mg Q6H PRN IV PAIN Last administered on 13:01; Admin Dose 30 MG; Start 11/28/16 at 08:30; Stop 12/01/16 at 08:29 Morphine Sulfate (morphine) 2 mg Q3H PRN IM PAIN 7-10 Last administered on 11/30 10:49; Admin Dose 2 MG; Start 11/28/16 at 08:30 SANDEE HINDS MD Nov 30, 2016 14:03
[2016-11-30] MEDS: PIPER-TAZO 3.375 GM IV (PMX) 100 ML IVPB SCH ×3 (14:39→23:30)
[2016-11-30] MEDS: KETOROLAC 30 MG INJ IV PRN ×2 (15:14→23:05)
[2016-12-01] VITALS (12 sets, daily range): BP systolic 106–132; BP diastolic 57–72; PULSE 53–72; RESP 16–57
[2016-12-01] MEDS: D5W-0.45 NACL + KCL 20 MEQ 1,000 ML IV SCH ×5 (00:40→19:32)
--- NOTE | 2016-12-01 04:46 | OPR ---
DATE OF OPERATION: 11/27/2016 PREOPERATIVE DIAGNOSIS: History of rectal cancer, need for ileostomy reversal. POSTOPERATIVE DIAGNOSIS: History of rectal cancer, need for ileostomy reversal. OPERATION PERFORMED: Reversal of ileostomy with resection of a portion of small bowel. SURGEON: Elder Hudson MD. SURGICAL ASSISTANT: Kalen Collado MD. ANESTHESIA: General. ANESTHESIOLOGIST: Jorge Saini MD. INDICATIONS FOR PROCEDURE: The patient is a 51-year-old male who I had previously treated for a low rectal cancer. He underwent a low anterior resection and a diverting ileostomy several months ago. He was now requesting reversal of his ileostomy. A previous barium enema revealed no obvious leak. Therefore the patient was counseled as to the benefits of ileostomy reversal. He consented and was scheduled for surgery. DESCRIPTION OF PROCEDURE: The patient was brought into the operating theater and placed under general anesthesia. The abdomen was shaved, prepped and draped in the usual sterile fashion. The ileostomy site was sutured closed with a 2-0 Prolene suture. A elliptical incision was then made around the skin of the ileostomy site. Subcutaneous tissue was dissected with cautery. Large circumferential dissection of the ileostomy site took place down to the abdominal wall fascia. The fascia was incised as was the underlying peritoneum and with meticulous dissection adhesions were taken down until the ostomy site was circumferentially free of the abdominal wall. Portions of the proximal and distal ilium were then gently mobilized and brought further through the ostomy site, this allowed good visualization of portions of bowel suitable for anastomosis. The bowel was then cleared of its mesentery both proximal and distal to the ostomy site, and the mesentery was sequentially transected with the LigaSure device. At this point dual enterotomies were made and anastomosis was created using the ROSAURA stapler. The portion of bowel associated with the proximal and distal portion of the ostomy site was then transected with cautery. Significant bleeding was controlled with the LigaSure device. The ileostomy site was then sent for permanent pathologic analysis. The staple line was inspected and minimal bleeding was controlled with cautery. The anastomosis was then completed with a TA stapler without difficulty. A small rent in the mesentery was then reapproximated with 3-0 silk pop-off sutures in standard fashion. The bowel was inspected. The anastomosis was deemed adequate. The bowel was viable. It was thus returned to the abdominal domain, and the fascia of the ostomy site was then reapproximated with 0 looped Prolene sutures in running fashion. The wound was then irrigated with Betadine. Dr. Hudson made an incision and placed a 7 flat Epifanio-Early drain into the wound cavity to prevent infection or abscess formation. The drain was cut to size, laid within the cavity and the drain was then secured in place with 2-0 nylon suture in standard fashion. The skin was then reapproximated with 2-0 nylon sutures in vertical mattress fashion. The patient tolerated the procedure well. The estimated blood loss was 30 mL. There were no complications and the patient was transported in stable condition to the recovery room. Dictated By: Elder Hudson MD /nhi/karolina /Document#: [id number]
[2016-12-01] MEDS: PIPER-TAZO 3.375 GM IV (PMX) 100 ML IVPB SCH ×3 (05:27→18:12)
[2016-12-01 07:29] LABS: BASOPHIL # 0.1 10^3/ul (0.0-0.1); BASOPHILS % 0.5 % (0.0-2.0); EOSINOPHILS # 0.1 10^3/ul (0.0-0.5); EOSINOPHILS % 1.1 % (0.0-7.0); HEMATOCRIT 40.1 % (42.0-52.0); HEMOGLOBIN 13.8 g/dl (14.0-18.0); LYMPHOCYTES # 1.3 10^3/ul (0.8-2.9); MEAN CORPUSCULAR HEMOGLOBIN 31.2 pg (29.0-33.0); MEAN CORPUSCULAR HGB CONC 34.4 g/dl (32.0-37.0); MEAN CORPUSCULAR VOLUME 90.7 fl (82.0-101.0); MONOCYTE # 1.2 10^3/ul (0.3-0.9); MONOCYTES % 9.2 % (0.0-11.0); NEUTROPHIL # 9.9 10^3/ul (1.6-7.5); NEUTROPHILS % 78.8 % (39.0-77.0); POSITIVE DIFF @See below; RED BLOOD COUNT 4.42 10^6/ul (4.70-6.10); RED CELL DISTRIBUTION WIDTH 12.8 % (11.5-14.5); WHITE BLOOD COUNT 12.5 10^3/ul (4.8-10.8)
[2016-12-01 07:42] LABS: PLATELET COUNT 141 10^3/UL (140-415)
[2016-12-01 07:52] LABS: CALCIUM 8.8 mg/dl (8.4-10.2); CREATININE 0.87 mg/dl (0.61-1.24); POTASSIUM 3.4 mmol/L (3.5-5.1)
[2016-12-01] MEDS: KETOROLAC 30 MG INJ IV PRN (08:07)
--- NOTE | 2016-12-01 14:11 | CONS ---
Date/Time of Note Date/Time of Note DATE: 12/01/16 TIME: 14:08 Assessment/Plan Assessment/Plan Chief Complaint/Hosp Course IMP: 1.BRadycardia-mainly in 50's with stable BP 2.abnl ecg-negative trop's/NL EF 3.s/p reversal of illeostomy 4. H/O colon ca REcc: -Tele -Follow BP/HR closely -Continue abx's and f/u cx data Problems: Consultation Date/Type/Reason Admit Date/Time Nov 27, 2016 at 09:45 Initial Consult Date 11/28/2016 Type of Consultation: cardiology Reason for Consultation Bradycardia Referring Provider: MIKE WOODS MD Exam/Review of Systems Vital Signs Vitals Vital Signs Date Time Temp Pulse Resp B/P Pulse Ox O2 Delivery O2 Flow Rate FiO2 12/01/16 12:30 66 12/01/16 11:47 99.0 18 106/61 94 12/01/16 08:17 Nasal Cannula 2.0 Intake and Output 11/30/16 11/30/16 12/01/16 15:00 23:00 07:00 Intake Total 1100 ml 675 ml 915 ml Output Total 200 ml 1700 ml 300 ml Balance 900 ml -1025 ml 615 ml Exam Review of Systems: CONSTITUTIONAL: No fevers, chills. PULMONARY: No sob CARDIOVASCULAR: No chest pain/palpitations GASTROINTESTINAL: No nausea/vomiting. GENITOURINARY: No hematuria/dysuria. MUSCULOSKELETAL: No myagias/arthalgias. PSYCHIATRIC: The patient denies depression. NEUROLOGIC: letharguic Constitutional: alert Psych: no complaints Head: normocephalic Neck: jvd, supple Respiratory: diminished breath sounds (at bases/B) Cardiovascular: other (bradycardia) Gastrointestinal: other (covered by dressing), soft Extremities: edema (none) Neurological: other (NO focal deficits) Results Result Diagram: 12/01/16 0706 12/01/16 0706 Results 24 hrs Laboratory Tests Test 12/01/16 07:06 White Blood Count 12.5 H Red Blood Count 4.42 L Hemoglobin 13.8 L Hematocrit 40.1 L Mean Corpuscular Volume 90.7 Mean Corpuscular Hemoglobin 31.2 Mean Corpuscular Hemoglobin Concent 34.4 Red Cell Distribution Width 12.8 Platelet Count 141 # Mean Platelet Volume 12.0 H Neutrophils % 78.8 H Lymphocytes % 10.0 L Monocytes % 9.2 Eosinophils % 1.1 Basophils % 0.5 Nucleated Red Blood Cells % 0.0 Neutrophils # 9.9 H Lymphocytes # 1.3 Monocytes # 1.2 H Eosinophils # 0.1 Basophils # 0.1 Nucleated Red Blood Cells # 0.0 Sodium Level 142 Potassium Level 3.4 L Chloride Level 102 Carbon Dioxide Level 28 Anion Gap 15 Blood Urea Nitrogen 6 L Creatinine 0.87 Glucose Level 135 Calcium Level 8.8 Medications Medications Current Medications Ondansetron HCl 4 mg 4 mg Q6H PRN IV NAUSEA AND/OR VOMITING Last administered on 11/30/16 14:39; Admin Dose 4 MG; Start 11/27/16 at 12:30 Potassium Chloride/Dextrose/ Sod Cl 1,000 ml @ 125 mls/hr Q8H IV Last administered on 12/01/16 10:01; Admin Dose 125 MLS/HR; Start 11/27/16 at 12:20 Acetaminophen (Ofirmev 1000mg/ 100ml Iv) 100 ml @ 400 mls/hr Q6H PRN IVPB PAIN Last administered on 11/29/16 20:17; Admin Dose 400 MLS/HR; Start at 12:30 Morphine Sulfate 2 mg 2 mg Q3H PRN IM PAIN 7-10 Last administered on 11/30/16 10:49; Admin Dose 2 MG; Start 11/28/16 at 08:30 Piperacillin Sod/ Tazobactam Sod (Zosyn 3.375gm/ 100 ml (Pmx)) 100 ml @ 200 mls /hr Q6 IVPB Last administered on 12/01/16 11:57; Admin Dose 200 MLS/HR; Start 11/30/16 at 14:30 CLAY HARDY Dec 01, 2016 14:11
[2016-12-01] MEDS: morphine 2 MG INJ IV PRN (15:19)
[2016-12-01] MEDS ORDERED: morphine 4 MG/ML VIAL IV PRN (15:30)
[2016-12-01] MEDS ORDERED: morphine 4 MG/ML VIAL IM PRN (15:30)
--- NOTE | 2016-12-01 15:53 | RADRPT ---
Vent Rate: 52 bpm RR Interval: 0 msec DE Interval: 146 msec QRS Duration: 100 msec QT Interval: 458 msec QTC Interval: 425 msec P-R-T [place]: 47 - 82 - 48 degrees Sinus bradycardia Otherwise normal ECG Electronically Signed By: Marty Benoit [id number]
--- NOTE | 2016-12-01 16:25 | PN ---
Date/Time of Note Date/Time of Note DATE: 12/01/16 TIME: 16:16 Assessment/Plan VTE Prophylaxis VTE Prophylaxis Intervention: SCD's Lines/Catheters [facility] (from [facility]): Peripheral IV Urinary Cath still in place: No Assessment/Plan Assessment/Plan Postop day #4 status post resection and closure of the ileostomy. Patient has had 2 bowel movements and passing gas today. NG tube drainage is not bilious. Abdomen is soft. Plan,: #1 DC NG tube and actually I did DC the NG tube. Patient may have cups of tea and water. The RN was reminded to make sure the patient ambulates on the floor. We will repeat CBC for tomorrow. The cause of the leukocytosis is not clear. Subjective 24 Hr Interval Summary Free Text/Dictation Postop day #4. Patient states that today he had 2 bowel movement liquid type. Complaining of the sore throat on the right side he thinks that is due to the NG tube. Has been out of bed sitting in chair for a while. Exam/Review of Systems Vital Signs Vitals Vital Signs Date Time Temp Pulse Resp B/P Pulse Ox O2 Delivery O2 Flow Rate FiO2 12/01/16 15:46 98.1 54 17 129/72 93 12/01/16 08:17 Nasal Cannula 2.0 Intake and Output 11/30/16 11/30/16 12/01/16 15:00 23:00 07:00 Intake Total 1100 ml 675 ml 915 ml Output Total 200 ml 1700 ml 300 ml Balance 900 ml -1025 ml 615 ml Exam Postop day #4. Vital signs stable. Temperature max 99.1 today. WBC 12,400. 78% segmented. Hemoglobin hematocrit is stable. BUN/creatinine sodium-potassium stable. Drainage from NG tube is is gastric juice. Is not bilious. Epifanio-Early right lower quadrant abdomen 16 cc serosanguineous. Abdomen is soft dressing intact bowel sound is 3+/4+. Results Result Diagram: 12/01/16 0712/01/16 0706 Results 24 hrs Laboratory Tests Test 12/01/16 07:06 White Blood Count 12.5 H Red Blood Count 4.42 L Hemoglobin 13.8 L Hematocrit 40.1 L Mean Corpuscular Volume 90.7 Mean Corpuscular Hemoglobin 31.2 Mean Corpuscular Hemoglobin Concent 34.4 Red Cell Distribution Width 12.8 Platelet Count 141 # Mean Platelet Volume 12.0 H Neutrophils % 78.8 H Lymphocytes % 10.0 L Monocytes % 9.2 Eosinophils % 1.1 Basophils % 0.5 Nucleated Red Blood Cells % 0.0 Neutrophils # 9.9 H Lymphocytes # 1.3 Monocytes # 1.2 H Eosinophils # 0.1 Basophils # 0.1 Nucleated Red Blood Cells # 0.0 Sodium Level 142 Potassium Level 3.4 L Chloride Level 102 Carbon Dioxide Level 28 Anion Gap 15 Blood Urea Nitrogen 6 L Creatinine 0.87 Glucose Level 135 Calcium Level 8.8 Medications Medications Current Medications Ondansetron HCl 4 mg 4 mg Q6H PRN IV NAUSEA AND/OR VOMITING Last administered on 11/30/16 14:39; Admin Dose 4 MG; Start 11/27/16 at 12:30 Potassium Chloride/Dextrose/ Sod Cl 1,000 ml @ 125 mls/hr Q8H IV Last administered on 12/01/16 10:01; Admin Dose 125 MLS/HR; Start 11/27/16 at 12:20 Acetaminophen (Ofirmev 1000mg/ 100ml Iv) 100 ml @ 400 mls/hr Q6H PRN IVPB PAIN Last administered on 11/29/16 20:17; Admin Dose 400 MLS/HR; Start at 12:30 Morphine Sulfate 2 mg 2 mg Q3H PRN IM PAIN 7-10 Last administered on 11/30/16 10:49; Admin Dose 2 MG; Start 11/28/16 at 08:30 Piperacillin Sod/ Tazobactam Sod (Zosyn 3.375gm/ 100 ml (Pmx)) 100 ml @ 200 mls /hr Q6 IVPB Last administered on 12/01/16 11:57; Admin Dose 200 MLS/HR; Start 11/30/16 at 14:30 Morphine Sulfate (morphine) 2 mg Q4H PRN IV PAIN SCALE 4-6 Last administered on 12/01/16 15:19; Admin Dose 2 MG; Start 12/01/16 at 15:30 Morphine Sulfate (morphine) 4 mg Q4H PRN IV PAIN SCALE 7-10; Start 12/01/16 at 15:30 SANDEE HINDS MD Dec 01, 2016 16:25
--- NOTE | 2016-12-01 18:47 | PN ---
Date/Time of Note Date/Time of Note DATE: 12/01/16 TIME: 18:43 Assessment/Plan VTE Prophylaxis VTE Prophylaxis Intervention: SCD's Lines/Catheters [facility] Peripheral IV Urinary Cath still in place: No Assessment/Plan Chief Complaint/Hosp Course Patient's continues to be slightly bradycardic, symptomatic. Patient has positive bowel sounds and flatus, started on clear liquid diet, G-tube removed. Assessment/Plan -Bradycardia, Dr. Benoit is following in cardiology consultation, continue telemetry monitoring. Troponin is negative, ejection fraction is 60%. -Status post ileostomy reversal by Dr. Hudson on 11/27. Continue morphine and Toradol for pain. Follow-up surgery recommendations. -History of rectal cancer, status post resection, and chemotherapy. -BPH. Further recommendations based on clinical course. Plan of care discussed with Dr. Cho. Problems: Exam/Review of Systems Vital Signs Vitals Vital Signs Date Time Temp Pulse Resp B/P Pulse Ox O2 Delivery O2 Flow Rate FiO2 12/01/16 16:52 53 12/01/16 15:46 98.1 17 129/72 93 12/01/16 08:17 Nasal Cannula 2.0 Intake and Output 11/30/16 11/30/16 12/01/16 15:00 23:00 07:00 Intake Total 1100 ml 675 ml 915 ml Output Total 200 ml 1700 ml 300 ml Balance 900 ml -1025 ml 615 ml Exam Constitutional: alert, oriented Head: normocephalic Neck: supple Respiratory: normal air movement Cardiovascular: nl pulses, other (Bradycardia) Gastrointestinal: other (Status post surgery) Extremities: normal pulses Neurological: nl mental status Results Result Diagram: 12/01/16 0706 12/01/16 0706 Results 24 hrs Laboratory Tests Test 12/01/16 07:06 White Blood Count 12.5 H Red Blood Count 4.42 L Hemoglobin 13.8 L Hematocrit 40.1 L Mean Corpuscular Volume 90.7 Mean Corpuscular Hemoglobin 31.2 Mean Corpuscular Hemoglobin Concent 34.4 Red Cell Distribution Width 12.8 Platelet Count 141 # Mean Platelet Volume 12.0 H Neutrophils % 78.8 H Lymphocytes % 10.0 L Monocytes % 9.2 Eosinophils % 1.1 Basophils % 0.5 Nucleated Red Blood Cells % 0.0 Neutrophils # 9.9 H Lymphocytes # 1.3 Monocytes # 1.2 H Eosinophils # 0.1 Basophils # 0.1 Nucleated Red Blood Cells # 0.0 Sodium Level 142 Potassium Level 3.4 L Chloride Level 102 Carbon Dioxide Level 28 Anion Gap 15 Blood Urea Nitrogen 6 L Creatinine 0.87 Glucose Level 135 Calcium Level 8.8 Medications Medications Current Medications Ondansetron HCl 4 mg 4 mg Q6H PRN IV NAUSEA AND/OR VOMITING Last administered on 11/30/16 14:39; Admin Dose 4 MG; Start 11/27/16 at 12:30 Potassium Chloride/Dextrose/ Sod Cl 1,000 ml @ 125 mls/hr Q8H IV Last administered on 12/01/16 10:01; Admin Dose 125 MLS/HR; Start 11/27/16 at 12:20 Acetaminophen (Ofirmev 1000mg/ 100ml Iv) 100 ml @ 400 mls/hr Q6H PRN IVPB PAIN Last administered on 11/29/16 20:17; Admin Dose 400 MLS/HR; Start at 12:30 Morphine Sulfate 2 mg 2 mg Q3H PRN IM PAIN 7-10 Last administered on 11/30/16 10:49; Admin Dose 2 MG; Start 11/28/16 at 08:30 Piperacillin Sod/ Tazobactam Sod (Zosyn 3.375gm/ 100 ml (Pmx)) 100 ml @ 200 mls /hr Q6 IVPB Last administered on 12/01/16 18:12; Admin Dose 200 MLS/HR; Start 11/30/16 at 14:30 Morphine Sulfate (morphine) 2 mg Q4H PRN IV PAIN SCALE 4-6 Last administered on 12/01/16 15:19; Admin Dose 2 MG; Start 12/01/16 at 15:30 Morphine Sulfate (morphine) 4 mg Q4H PRN IV PAIN SCALE 7-10; Start 12/01/16 at 15:30 HEAVEN MARRERO Dec 01, 2016 18:47
[2016-12-01] MEDS: ONDANSETRON 4 MG INJ IV PRN (19:32)
[2016-12-02] VITALS (12 sets, daily range): BP systolic 106–156; BP diastolic 65–76; PULSE 47–62; RESP 17–19
[2016-12-02] MEDS: ONDANSETRON 4 MG INJ IV PRN (02:29)
[2016-12-02] MEDS: PIPER-TAZO 3.375 GM IV (PMX) 100 ML IVPB SCH ×4 (05:33→17:54)
[2016-12-02] MEDS: D5W-0.45 NACL + KCL 20 MEQ 1,000 ML IV SCH ×4 (05:33→20:50)
[2016-12-02 09:05] LABS: BASOPHIL # 0.1 10^3/ul (0.0-0.1); BASOPHILS % 0.5 % (0.0-2.0); EOSINOPHILS # 0.3 10^3/ul (0.0-0.5); EOSINOPHILS % 2.8 % (0.0-7.0); HEMATOCRIT 38.6 % (42.0-52.0); HEMOGLOBIN 13.4 g/dl (14.0-18.0); LYMPHOCYTES # 1.6 10^3/ul (0.8-2.9); LYMPHOCYTES % 15.3 % (15.0-51.0); MEAN CORPUSCULAR HEMOGLOBIN 32.1 pg (29.0-33.0); MEAN CORPUSCULAR HGB CONC 34.7 g/dl (32.0-37.0); MEAN CORPUSCULAR VOLUME 92.6 fl (82.0-101.0); MEAN PLATELET VOLUME 12.5 fl (7.4-10.4); MONOCYTES % 9.9 % (0.0-11.0); NEUTROPHIL # 7.4 10^3/ul (1.6-7.5); NEUTROPHILS % 71.1 % (39.0-77.0); PLATELET COUNT 152 10^3/UL (140-415); RED BLOOD COUNT 4.17 10^6/ul (4.70-6.10); WHITE BLOOD COUNT 10.5 10^3/ul (4.8-10.8)
[2016-12-02 09:16] LABS: CALCIUM 8.8 mg/dl (8.4-10.2); CREATININE 0.84 mg/dl (0.61-1.24); POTASSIUM 3.2 mmol/L (3.5-5.1)
[2016-12-02] MEDS ORDERED: POTASSIUM CHLORIDE 20 MEQ POWDER FOR ORAL SOLN PO ONE (15:30)
--- NOTE | 2016-12-02 15:35 | PN ---
Date/Time of Note Date/Time of Note DATE: 12/02/16 TIME: 15:30 Assessment/Plan VTE Prophylaxis VTE Prophylaxis Intervention: ambulation Lines/Catheters IV Catheter Type (from [facility]): Peripheral IV Urinary Cath still in place: No Assessment/Plan Assessment/Plan Postop day #5. Status post takedown and closure of ileostomy. Patient is doing fine so far couple of days had mild fever and also leukocytosis today leukocyte is normal and no fever. Incision line is clean. Plan to advance diet to clear liquid diet today. Subjective 24 Hr Interval Summary Free Text/Dictation Has had several bowel movement and loose watery. No chills or fever. Has tolerated liquid diet so far. Exam/Review of Systems Vital Signs Vitals Vital Signs Date Time Temp Pulse Resp B/P Pulse Ox O2 Delivery O2 Flow Rate FiO2 12/02/16 12:21 60 12/02/16 11:42 98.1 17 107/66 96 12/01/16 08:17 Nasal Cannula 2.0 Intake and Output 12/01/16 12/01/16 12/02/16 15:00 23:00 07:00 Intake Total 425 ml 995 ml 1250 ml Output Total 1003 ml 665 ml Balance 425 ml -8 ml 585 ml Exam Postop day #5 Vital signs are stable afebrile. WBC dropped to 10.5 which is normal with normal differential. Dressing change and wound is clean. Abdomen is soft. Epifanio-Early 15 cc of serosanguineous fluid in the past 24 hours. Results Result Diagram: 12/02/16 0748 12/02/16 0748 Results 24 hrs Laboratory Tests Test 12/02/16 07:48 White Blood Count 10.5 Red Blood Count 4.17 L Hemoglobin 13.4 L Hematocrit 38.6 L Mean Corpuscular Volume 92.6 Mean Corpuscular Hemoglobin 32.1 Mean Corpuscular Hemoglobin Concent 34.7 Red Cell Distribution Width 13.0 Platelet Count 152 Mean Platelet Volume 12.5 H Neutrophils % 71.1 Lymphocytes % 15.3 Monocytes % 9.9 Eosinophils % 2.8 Basophils % 0.5 Nucleated Red Blood Cells % 0.0 Neutrophils # 7.4 Lymphocytes # 1.6 Monocytes # 1.0 H Eosinophils # 0.3 Basophils # 0.1 Nucleated Red Blood Cells # 0.0 Sodium Level 142 Potassium Level 3.2 L Chloride Level 102 Carbon Dioxide Level 25 Anion Gap 18 H Blood Urea Nitrogen 7 Creatinine 0.84 Glucose Level 118 Calcium Level 8.8 Medications Medications Current Medications Ondansetron HCl 4 mg 4 mg Q6H PRN IV NAUSEA AND/OR VOMITING Last administered on 12/02/16 02:29; Admin Dose 4 MG; Start 11/27/16 at 12:30 Potassium Chloride/Dextrose/ Sod Cl 1,000 ml @ 125 mls/hr Q8H IV Last administered on 12/02/16 05:33; Admin Dose 125 MLS/HR; Start 11/27/16 at 12:20 Acetaminophen (Ofirmev 1000mg/ 100ml Iv) 100 ml @ 400 mls/hr Q6H PRN IVPB PAIN Last administered on 11/29/16 20:17; Admin Dose 400 MLS/HR; Start at 12:30 Morphine Sulfate 2 mg 2 mg Q3H PRN IM PAIN 7-10 Last administered on 11/30/16 10:49; Admin Dose 2 MG; Start 11/28/16 at 08:30 Piperacillin Sod/ Tazobactam Sod (Zosyn 3.375gm/ 100 ml (Pmx)) 100 ml @ 200 mls /hr Q6 IVPB Last administered on 12/02/16 11:37; Admin Dose 200 MLS/HR; Start 11/30/16 at 14:30 Morphine Sulfate (morphine) 2 mg Q4H PRN IV PAIN SCALE 4-6 Last administered on 12/01/16 15:19; Admin Dose 2 MG; Start 12/01/16 at 15:30 Morphine Sulfate (morphine) 4 mg Q4H PRN IV PAIN SCALE 7-10; Start 12/01/16 at 15:30 Potassium Chloride (Potassium Chloride Pwd/Soln) 40 meq ONCE ONCE PO ; Start at 15:30; Stop 12/02/16 at 15:31 SANDEE HINDS MD Dec 02, 2016 15:35
--- NOTE | 2016-12-02 16:54 | PN ---
Date/Time of Note Date/Time of Note DATE: 12/02/16 TIME: 16:52 Assessment/Plan VTE Prophylaxis VTE Prophylaxis Intervention: SCD's Lines/Catheters [facility] Type (from [facility]): Peripheral IV Urinary Cath still in place: No Assessment/Plan Chief Complaint/Hosp Course Patient tolerates clear liquid diet well, had bowel movement, continues to be bradycardic with heart rate ranges from 40-60, continue telemetry monitoring. Assessment/Plan -Mild hypokalemia, potassium replaced. -Bradycardia, Dr. Benoit is following in cardiology consultation, continue telemetry monitoring. Troponin is negative, ejection fraction is 60%. -Status post ileostomy reversal by Dr. Hudson on 11/27. Continue morphine and Toradol for pain. Follow-up surgery recommendations. -History of rectal cancer, status post resection, and chemotherapy. -BPH. Further recommendations based on clinical course. Plan of care discussed with Dr. Cho. Problems: Exam/Review of Systems Vital Signs Vitals Vital Signs Date Time Temp Pulse Resp B/P Pulse Ox O2 Delivery O2 Flow Rate FiO2 12/02/16 16:33 47 12/02/16 15:53 98.5 18 120/69 96 12/01/16 08:17 Nasal Cannula 2.0 Intake and Output 12/01/16 12/01/16 12/02/16 15:00 23:00 07:00 Intake Total 425 ml 995 ml 1250 ml Output Total 1003 ml 665 ml Balance 425 ml -8 ml 585 ml Exam Constitutional: alert, oriented Head: normocephalic Neck: supple Respiratory: normal air movement Cardiovascular: nl pulses, other (Bradycardia) Gastrointestinal: other (Status post surgery) Extremities: normal pulses Neurological: nl mental status Results Result Diagram: 12/02/16 0748 12/02/16 0748 Results 24 hrs Laboratory Tests Test 12/02/16 07:48 White Blood Count 10.5 Red Blood Count 4.17 L Hemoglobin 13.4 L Hematocrit 38.6 L Mean Corpuscular Volume 92.6 Mean Corpuscular Hemoglobin 32.1 Mean Corpuscular Hemoglobin Concent 34.7 Red Cell Distribution Width 13.0 Platelet Count 152 Mean Platelet Volume 12.5 H Neutrophils % 71.1 Lymphocytes % 15.3 Monocytes % 9.9 Eosinophils % 2.8 Basophils % 0.5 Nucleated Red Blood Cells % 0.0 Neutrophils # 7.4 Lymphocytes # 1.6 Monocytes # 1.0 H Eosinophils # 0.3 Basophils # 0.1 Nucleated Red Blood Cells # 0.0 Sodium Level 142 Potassium Level 3.2 L Chloride Level 102 Carbon Dioxide Level 25 Anion Gap 18 H Blood Urea Nitrogen 7 Creatinine 0.84 Glucose Level 118 Calcium Level 8.8 Medications Medications Current Medications Ondansetron HCl 4 mg 4 mg Q6H PRN IV NAUSEA AND/OR VOMITING Last administered on 12/02/16 02:29; Admin Dose 4 MG; Start 11/27/16 at 12:30 Potassium Chloride/Dextrose/ Sod Cl 1,000 ml @ 125 mls/hr Q8H IV Last administered on 12/02/16 05:33; Admin Dose 125 MLS/HR; Start 11/27/16 at 12:20 Acetaminophen (Ofirmev 1000mg/ 100ml Iv) 100 ml @ 400 mls/hr Q6H PRN IVPB PAIN Last administered on 11/29/16 20:17; Admin Dose 400 MLS/HR; Start at 12:30 Morphine Sulfate 2 mg 2 mg Q3H PRN IM PAIN 7-10 Last administered on 11/30/16 10:49; Admin Dose 2 MG; Start 11/28/16 at 08:30 Piperacillin Sod/ Tazobactam Sod (Zosyn 3.375gm/ 100 ml (Pmx)) 100 ml @ 200 mls /hr Q6 IVPB Last administered on 12/02/16 11:37; Admin Dose 200 MLS/HR; Start 11/30/16 at 14:30 Morphine Sulfate (morphine) 2 mg Q4H PRN IV PAIN SCALE 4-6 Last administered on 12/01/16 15:19; Admin Dose 2 MG; Start 12/01/16 at 15:30 Morphine Sulfate (morphine) 4 mg Q4H PRN IV PAIN SCALE 7-10; Start 12/01/16 at 15:30 HEAVEN MARRERO Dec 02, 2016 16:54
--- NOTE | 2016-12-02 18:14 | CONS ---
Date/Time of Note Date/Time of Note DATE: 12/02/16 TIME: 18:11 Assessment/Plan Assessment/Plan Chief Complaint/Hosp Course IMP: 1.BRadycardia-mainly in 50's with stable BP. No indication for PPM at this time 2.abnl ecg-negative trop's/NL EF 3.s/p reversal of illeostomy 4. H/O colon ca REcc: -Tele -Follow BP/HR closely -Continue abx's and f/u cx data Problems: Consultation Date/Type/Reason Admit Date/Time Nov 27, 2016 at 09:45 Initial Consult Date 11/28/2016 Type of Consultation: cardiology Reason for Consultation bradycardia Referring Provider: MIKE WOODS MD Exam/Review of Systems Vital Signs Vitals Vital Signs Date Time Temp Pulse Resp B/P Pulse Ox O2 Delivery O2 Flow Rate FiO2 12/02/16 16:33 47 12/02/16 15:53 98.5 18 120/69 96 12/01/16 08:17 Nasal Cannula 2.0 Intake and Output 12/01/16 12/01/16 12/02/16 15:00 23:00 07:00 Intake Total 425 ml 995 ml 1250 ml Output Total 1003 ml 665 ml Balance 425 ml -8 ml 585 ml Exam Review of Systems: CONSTITUTIONAL: No fevers, chills. PULMONARY: No sob CARDIOVASCULAR: No chest pain/palpitations GASTROINTESTINAL: No nausea/vomiting. GENITOURINARY: No hematuria/dysuria. MUSCULOSKELETAL: No myagias/arthalgias. PSYCHIATRIC: The patient denies depression. NEUROLOGIC: No weakness Constitutional: alert Psych: no complaints ENMT: mucosa pink and moist Neck: jvd, supple Respiratory: diminished breath sounds Cardiovascular: regular rate and rhythm Gastrointestinal: soft Musculoskeletal: muscle weakness Extremities: edema (none) Neurological: other (No focal deficits) Results Result Diagram: 12/02/16 0748 12/02/16 0748 Results 24 hrs Laboratory Tests Test 12/02/16 07:48 White Blood Count 10.5 Red Blood Count 4.17 L Hemoglobin 13.4 L Hematocrit 38.6 L Mean Corpuscular Volume 92.6 Mean Corpuscular Hemoglobin 32.1 Mean Corpuscular Hemoglobin Concent 34.7 Red Cell Distribution Width 13.0 Platelet Count 152 Mean Platelet Volume 12.5 H Neutrophils % 71.1 Lymphocytes % 15.3 Monocytes % 9.9 Eosinophils % 2.8 Basophils % 0.5 Nucleated Red Blood Cells % 0.0 Neutrophils # 7.4 Lymphocytes # 1.6 Monocytes # 1.0 H Eosinophils # 0.3 Basophils # 0.1 Nucleated Red Blood Cells # 0.0 Sodium Level 142 Potassium Level 3.2 L Chloride Level 102 Carbon Dioxide Level 25 Anion Gap 18 H Blood Urea Nitrogen 7 Creatinine 0.84 Glucose Level 118 Calcium Level 8.8 Medications Medications Current Medications Ondansetron HCl 4 mg 4 mg Q6H PRN IV NAUSEA AND/OR VOMITING Last administered on 12/02/16 02:29; Admin Dose 4 MG; Start 11/27/16 at 12:30 Potassium Chloride/Dextrose/ Sod Cl 1,000 ml @ 125 mls/hr Q8H IV Last administered on 12/02/16 17:54; Admin Dose 125 MLS/HR; Start 11/27/16 at 12:20 Acetaminophen (Ofirmev 1000mg/ 100ml Iv) 100 ml @ 400 mls/hr Q6H PRN IVPB PAIN Last administered on 11/29/16 20:17; Admin Dose 400 MLS/HR; Start at 12:30 Morphine Sulfate 2 mg 2 mg Q3H PRN IM PAIN 7-10 Last administered on 11/30/16 10:49; Admin Dose 2 MG; Start 11/28/16 at 08:30 Piperacillin Sod/ Tazobactam Sod (Zosyn 3.375gm/ 100 ml (Pmx)) 100 ml @ 200 mls /hr Q6 IVPB Last administered on 12/02/16 17:54; Admin Dose 200 MLS/HR; Start 11/30/16 at 14:30 Morphine Sulfate (morphine) 2 mg Q4H PRN IV PAIN SCALE 4-6 Last administered on 12/01/16 15:19; Admin Dose 2 MG; Start 12/01/16 at 15:30 Morphine Sulfate (morphine) 4 mg Q4H PRN IV PAIN SCALE 7-10; Start 12/01/16 at 15:30 CLAY HARDY Dec 02, 2016 18:14
[2016-12-03] VITALS (11 sets, daily range): BP systolic 111–128; BP diastolic 61–75; PULSE 47–63; RESP 17–20
[2016-12-03] MEDS: PIPER-TAZO 3.375 GM IV (PMX) 100 ML IVPB SCH ×3 (00:57→12:45)
[2016-12-03] MEDS: D5W-0.45 NACL + KCL 20 MEQ 1,000 ML IV SCH ×3 (03:42→22:13)
[2016-12-03 07:49] LABS: BASOPHIL # 0.1 10^3/ul (0.0-0.1); BASOPHILS % 0.6 % (0.0-2.0); EOSINOPHILS # 0.3 10^3/ul (0.0-0.5); EOSINOPHILS % 3.7 % (0.0-7.0); HEMATOCRIT 37.6 % (42.0-52.0); HEMOGLOBIN 12.8 g/dl (14.0-18.0); LYMPHOCYTES # 1.2 10^3/ul (0.8-2.9); LYMPHOCYTES % 14.2 % (15.0-51.0); MEAN CORPUSCULAR HEMOGLOBIN 31.2 pg (29.0-33.0); MEAN CORPUSCULAR VOLUME 91.7 fl (82.0-101.0); MEAN PLATELET VOLUME 12.1 fl (7.4-10.4); MONOCYTE # 0.8 10^3/ul (0.3-0.9); MONOCYTES % 9.5 % (0.0-11.0); NEUTROPHILS % 71.8 % (39.0-77.0); PLATELET COUNT 102 10^3/UL (140-415); RED CELL DISTRIBUTION WIDTH 12.7 % (11.5-14.5); WHITE BLOOD COUNT 8.4 10^3/ul (4.8-10.8)
[2016-12-03 08:13] LABS: CALCIUM 9.2 mg/dl (8.4-10.2); CREATININE 0.73 mg/dl (0.61-1.24); POTASSIUM 3.2 mmol/L (3.5-5.1)
--- NOTE | 2016-12-03 13:08 | PN ---
Date/Time of Note Date/Time of Note DATE: 12/03/16 TIME: 13:02 Assessment/Plan VTE Prophylaxis VTE Prophylaxis Intervention: ambulation Lines/Catheters IV [facility] Type (from [facility]): Peripheral IV Urinary Cath still in place: No Assessment/Plan Assessment/Plan Postop day #6. Yesterday patient has had several loose bowel movement today stool culture for C. difficile antigen was sent. No fever no nausea no vomiting appetite is good. Tolerated clear liquid we are going to advance to full liquid diet today. Epifanio-Early drain is still draining serosanguineous fluid. If tolerates full liquid diet most probably tomorrow we are going to advance to soft diet. Subjective 24 Hr Interval Summary Free Text/Dictation Postop day #6. Status post closure of right lower quadrant ileostomy. Does not complaining of any pain but he states that this seen today had 3 loose bowel movements. No nausea no vomiting. Exam/Review of Systems Vital Signs Vitals Vital Signs Date Time Temp Pulse Resp B/P Pulse Ox O2 Delivery O2 Flow Rate FiO2 12/03/16 11:42 98.2 56 18 122/66 91 12/01/16 08:17 Nasal Cannula 2.0 Intake and Output 12/02/16 12/02/16 12/03/16 15:00 23:00 07:00 Intake Total 350 ml 1775 ml 1625 ml Output Total 10 ml Balance 340 ml 1775 ml 1625 ml Exam Vital sign is a stable. Patient is alert awake oriented 3 have been ambulating going around the floor. No fever. Leukocyte count is down to normal. Abdomen is slightly distended with gas bowel sound is present soft no tenderness. No guarding no rebound tenderness. Incision line is clean. Results Result Diagram: 12/03/1670412/03/16 07 Results 24 hrs Laboratory Tests Test 12/03/16 07:05 White Blood Count 8.4 Red Blood Count 4.10 L Hemoglobin 12.8 L Hematocrit 37.6 L Mean Corpuscular Volume 91.7 Mean Corpuscular Hemoglobin 31.2 Mean Corpuscular Hemoglobin Concent 34.0 Red Cell Distribution Width 12.7 Platelet Count 102 #L Mean Platelet Volume 12.1 H Neutrophils % 71.8 Lymphocytes % 14.2 L Monocytes % 9.5 Eosinophils % 3.7 Basophils % 0.6 Nucleated Red Blood Cells % 0.0 Neutrophils # 6.0 Lymphocytes # 1.2 Monocytes # 0.8 Eosinophils # 0.3 Basophils # 0.1 Nucleated Red Blood Cells # 0.0 Sodium Level 140 Potassium Level 3.2 L Chloride Level 100 Carbon Dioxide Level 25 Anion Gap 18 H Blood Urea Nitrogen 3 L Creatinine 0.73 Glucose Level 155 Calcium Level 9.2 Medications Medications Current Medications Ondansetron HCl 4 mg 4 mg Q6H PRN IV NAUSEA AND/OR VOMITING Last administered on 12/02/16 02:29; Admin Dose 4 MG; Start 11/27/16 at 12:30 Potassium Chloride/Dextrose/ Sod Cl 1,000 ml @ 125 mls/hr Q8H IV Last administered on 12/03/16 12:45; Admin Dose 125 MLS/HR; Start 11/27/16 at 12:20 Acetaminophen (Ofirmev 1000mg/ 100ml Iv) 100 ml @ 400 mls/hr Q6H PRN IVPB PAIN Last administered on 11/29/16 20:17; Admin Dose 400 MLS/HR; Start at 12:30 Morphine Sulfate 2 mg 2 mg Q3H PRN IM PAIN 7-10 Last administered on 11/30/16 10:49; Admin Dose 2 MG; Start 11/28/16 at 08:30 Piperacillin Sod/ Tazobactam Sod (Zosyn 3.375gm/ 100 ml (Pmx)) 100 ml @ 200 mls /hr Q6 IVPB Last administered on 12/03/16 12:45; Admin Dose 200 MLS/HR; Start 11/30/16 at 14:30 Morphine Sulfate (morphine) 2 mg Q4H PRN IV PAIN SCALE 4-6 Last administered on 12/01/16 15:19; Admin Dose 2 MG; Start 12/01/16 at 15:30 Morphine Sulfate (morphine) 4 mg Q4H PRN IV PAIN SCALE 7-10; Start 12/01/16 at 15:30 SANDEE HINDS MD Dec 03, 2016 13:08
--- NOTE | 2016-12-03 16:28 | PN ---
Date/Time of Note Date/Time of Note DATE: 12/03/16 TIME: 16:26 Assessment/Plan VTE Prophylaxis VTE Prophylaxis Intervention: SCD's Lines/Catheters IV Catheter Type (from [facility]): Peripheral IV Urinary Cath still in place: No Assessment/Plan Chief Complaint/Hosp Course Patient tolerates full liquid diet well, complains of liquid stool, pending stool for C. difficile. Assessment/Plan -Mild hypokalemia, potassium replaced. -Bradycardia, Dr. Benoit is following in cardiology consultation, continue telemetry monitoring. Troponin is negative, ejection fraction is 60%. -Status post ileostomy reversal by Dr. Hudson on 11/27. Continue morphine and Toradol for pain. Follow-up surgery recommendations. -History of rectal cancer, status post resection, and chemotherapy. -BPH. Further recommendations based on clinical course. Plan of care discussed with Dr. Cho. Problems: Exam/Review of Systems Vital Signs Vitals Vital Signs Date Time Temp Pulse Resp B/P Pulse Ox O2 Delivery O2 Flow Rate FiO2 12/03/16 16:23 59 12/03/16 15:36 98.6 18 111/70 94 12/01/16 08:17 Nasal Cannula 2.0 Intake and Output 12/02/16 12/02/16 12/03/16 15:00 23:00 07:00 Intake Total 350 ml 1775 ml 1625 ml Output Total 10 ml Balance 340 ml 1775 ml 1625 ml Exam Constitutional: alert, oriented Head: normocephalic Neck: supple Respiratory: normal air movement Cardiovascular: nl pulses, other (Bradycardia) Gastrointestinal: other (Status post surgery) Extremities: normal pulses Neurological: nl mental status Results Result Diagram: 12/03/16 0712/03/16704 Results 24 hrs Laboratory Tests Test 12/03/16 07:05 White Blood Count 8.4 Red Blood Count 4.10 L Hemoglobin 12.8 L Hematocrit 37.6 L Mean Corpuscular Volume 91.7 Mean Corpuscular Hemoglobin 31.2 Mean Corpuscular Hemoglobin Concent 34.0 Red Cell Distribution Width 12.7 Platelet Count 102 #L Mean Platelet Volume 12.1 H Neutrophils % 71.8 Lymphocytes % 14.2 L Monocytes % 9.5 Eosinophils % 3.7 Basophils % 0.6 Nucleated Red Blood Cells % 0.0 Neutrophils # 6.0 Lymphocytes # 1.2 Monocytes # 0.8 Eosinophils # 0.3 Basophils # 0.1 Nucleated Red Blood Cells # 0.0 Sodium Level 140 Potassium Level 3.2 L Chloride Level 100 Carbon Dioxide Level 25 Anion Gap 18 H Blood Urea Nitrogen 3 L Creatinine 0.73 Glucose Level 155 Calcium Level 9.2 Medications Medications Current Medications Ondansetron HCl 4 mg 4 mg Q6H PRN IV NAUSEA AND/OR VOMITING Last administered on 12/02/16 02:29; Admin Dose 4 MG; Start 11/27/16 at 12:30 Potassium Chloride/Dextrose/ Sod Cl 1,000 ml @ 125 mls/hr Q8H IV Last administered on 12/03/16 12:45; Admin Dose 125 MLS/HR; Start 11/27/16 at 12:20 Acetaminophen (Ofirmev 1000mg/ 100ml Iv) 100 ml @ 400 mls/hr Q6H PRN IVPB PAIN Last administered on 11/29/16 20:17; Admin Dose 400 MLS/HR; Start at 12:30 Morphine Sulfate (morphine) 2 mg Q3H PRN IM PAIN 7-10 Last administered on 11/30 10:49; Admin Dose 2 MG; Start 11/28/16 at 08:30 Morphine Sulfate (morphine) 2 mg Q4H PRN IV PAIN SCALE 4-6 Last administered on 12/01/16 15:19; Admin Dose 2 MG; Start 12/01/16 at 15:30 Morphine Sulfate (morphine) 4 mg Q4H PRN IV PAIN SCALE 7-10; Start 12/01/16 at 15:30 HEAVEN MARRERO Dec 03, 2016 16:28
[2016-12-03] MEDS ORDERED: POTASSIUM CHLORIDE 30 MEQ in SOD CHLORIDE 0.9% 150 ML IVPB ONE (16:30)
[2016-12-03] MEDS: morphine 2 MG INJ IV PRN (16:55)
--- NOTE | 2016-12-03 21:37 | CONS ---
Date/Time of Note Date/Time of Note DATE: 12/03/16 TIME: 21:35 Assessment/Plan Assessment/Plan Chief Complaint/Hosp Course IMP: 1.BRadycardia-mainly in 50's with stable BP. No indication for PPM at this time 2.abnl ecg-negative trop's/NL EF 3.s/p reversal of illeostomy 4. H/O colon ca 5. Loose stools REcc: -Tele -Follow BP/HR closely -F/U c.diff Problems: Consultation Date/Type/Reason Admit Date/Time Nov 27, 2016 at 09:45 Initial Consult Date 11/28/2016 Type of Consultation: cardiology Reason for Consultation bradycardia Referring Provider: MIKE WOODS MD Exam/Review of Systems Vital Signs Vitals Vital Signs Date Time Temp Pulse Resp B/P Pulse Ox O2 Delivery O2 Flow Rate FiO2 12/03/16 20:01 99.3 56 20 128/62 95 12/01/16 08:17 Nasal Cannula 2.0 Intake and Output 12/02/16 12/02/16 12/03/16 15:00 23:00 07:00 Intake Total 350 ml 1775 ml 1625 ml Output Total 10 ml Balance 340 ml 1775 ml 1625 ml Exam Review of Systems: CONSTITUTIONAL: No fevers, chills. PULMONARY: No sob CARDIOVASCULAR: No chest pain/palpitations GASTROINTESTINAL: loose stools GENITOURINARY: No hematuria/dysuria. MUSCULOSKELETAL: No myagias/arthalgias. PSYCHIATRIC: The patient denies depression. NEUROLOGIC: No weakness Constitutional: alert Psych: no complaints Head: normocephalic ENMT: mucosa pink and moist Neck: jvd (9), supple Respiratory: clear to auscultation Cardiovascular: regular rate and rhythm Gastrointestinal: soft, tender Musculoskeletal: muscle tone (normal) Extremities: edema (none) Neurological: other (normal) Results Result Diagram: 12/03/16 0712/03/16 0705 Results 24 hrs Laboratory Tests Test 12/03/16 07:05 White Blood Count 8.4 Red Blood Count 4.10 L Hemoglobin 12.8 L Hematocrit 37.6 L Mean Corpuscular Volume 91.7 Mean Corpuscular Hemoglobin 31.2 Mean Corpuscular Hemoglobin Concent 34.0 Red Cell Distribution Width 12.7 Platelet Count 102 #L Mean Platelet Volume 12.1 H Neutrophils % 71.8 Lymphocytes % 14.2 L Monocytes % 9.5 Eosinophils % 3.7 Basophils % 0.6 Nucleated Red Blood Cells % 0.0 Neutrophils # 6.0 Lymphocytes # 1.2 Monocytes # 0.8 Eosinophils # 0.3 Basophils # 0.1 Nucleated Red Blood Cells # 0.0 Sodium Level 140 Potassium Level 3.2 L Chloride Level 100 Carbon Dioxide Level 25 Anion Gap 18 H Blood Urea Nitrogen 3 L Creatinine 0.73 Glucose Level 155 Calcium Level 9.2 Medications Medications Current Medications Ondansetron HCl 4 mg 4 mg Q6H PRN IV NAUSEA AND/OR VOMITING Last administered on 12/02/16 02:29; Admin Dose 4 MG; Start 11/27/16 at 12:30 Potassium Chloride/Dextrose/ Sod Cl 1,000 ml @ 125 mls/hr Q8H IV Last administered on 12/03/16 12:45; Admin Dose 125 MLS/HR; Start 11/27/16 at 12:20 Acetaminophen (Ofirmev 1000mg/ 100ml Iv) 100 ml @ 400 mls/hr Q6H PRN IVPB PAIN Last administered on 11/29/16 20:17; Admin Dose 400 MLS/HR; Start at 12:30 Morphine Sulfate (morphine) 2 mg Q3H PRN IM PAIN 7-10 Last administered on 11/30 10:49; Admin Dose 2 MG; Start 11/28/16 at 08:30 Morphine Sulfate (morphine) 2 mg Q4H PRN IV PAIN SCALE 4-6 Last administered on 12/03/16 16:55; Admin Dose 2 MG; Start 12/01/16 at 15:30 Morphine Sulfate (morphine) 4 mg Q4H PRN IV PAIN SCALE 7-10; Start 12/01/16 at 15:30 CLAY HARDY Dec 03, 2016 21:37
[2016-12-04] VITALS (12 sets, daily range): BP systolic 106–138; BP diastolic 51–85; PULSE 51–67; RESP 18–20
[2016-12-04] MEDS: D5W-0.45 NACL + KCL 20 MEQ 1,000 ML IV SCH ×3 (03:48→22:50)
[2016-12-04 08:41] LABS: ANION GAP 19 (8-16); CALCIUM 9.2 mg/dl (8.4-10.2); CARBON DIOXIDE 24 mmol/L (21-31); CHLORIDE 104 mmol/L (97-110); CREATININE 0.69 mg/dl (0.61-1.24); GLUCOSE 114 mg/dl (70-220); POTASSIUM 3.5 mmol/L (3.5-5.1); SODIUM 143 mmol/L (135-144)
[2016-12-04 08:42] LABS: BLOOD UREA NITROGEN < 2 mg/dl (7-20)
[2016-12-04] MEDS: morphine 2 MG INJ IV PRN ×2 (08:56→17:09)
--- NOTE | 2016-12-04 11:21 | CONS ---
Date/Time of Note Date/Time of Note DATE: 12/04/16 TIME: 11:20 Assessment/Plan Assessment/Plan Chief Complaint/Hosp Course IMP: 1.BRadycardia-mainly in 50's with stable BP. No indication for PPM at this time 2.abnl ecg-negative trop's/NL EF 3.s/p reversal of illeostomy 4. H/O colon ca 5. Loose stools REcc: -Tele -Follow BP/HR closely -F/U c.diff Problems: Consultation Date/Type/Reason Admit Date/Time Nov 27, 2016 at 09:45 Initial Consult Date 11/28/2016 Type of Consultation: cardiology Reason for Consultation bradycardia Referring Provider: MIKE WOODS MD Exam/Review of Systems Vital Signs Vitals Vital Signs Date Time Temp Pulse Resp B/P Pulse Ox O2 Delivery O2 Flow Rate FiO2 12/04/16 08:30 56 12/04/16 08:07 98.9 18 132/84 94 12/01/16 08:17 Nasal Cannula 2.0 Intake and Output 12/03/16 12/03/16 12/04/16 15:00 23:00 07:00 Intake Total 1360 ml Output Total 5 ml 4 ml Balance -5 ml 1356 ml Exam Review of Systems: CONSTITUTIONAL: No fevers, chills. PULMONARY: No sob CARDIOVASCULAR: No chest pain/palpitations GASTROINTESTINAL: No nausea/vomiting. GENITOURINARY: No hematuria/dysuria. MUSCULOSKELETAL: No myagias/arthalgias. PSYCHIATRIC: The patient denies depression. NEUROLOGIC: No weakness Constitutional: alert, oriented Psych: no complaints Head: normocephalic ENMT: mucosa pink and moist Neck: jvd (8-9 cm water), supple Respiratory: clear to auscultation Cardiovascular: regular rate and rhythm Gastrointestinal: non-tender, soft Musculoskeletal: muscle tone (normal) Extremities: edema (none) Neurological: other (No focalm deficits) Results Result Diagram: 12/03/16 0705 12/04/16 0659 Results 24 hrs Laboratory Tests Test 12/04/16 06:59 Sodium Level 143 Potassium Level 3.5 Chloride Level 104 Carbon Dioxide Level 24 Anion Gap 19 H Blood Urea Nitrogen < 2 L Creatinine 0.69 Glucose Level 114 # Calcium Level 9.2 Medications Medications Current Medications Ondansetron HCl 4 mg 4 mg Q6H PRN IV NAUSEA AND/OR VOMITING Last administered on 12/02/16 02:29; Admin Dose 4 MG; Start 11/27/16 at 12:30 Potassium Chloride/Dextrose/ Sod Cl 1,000 ml @ 125 mls/hr Q8H IV Last administered on 12/04/16 03:48; Admin Dose 125 MLS/HR; Start 11/27/16 at 12:20 Acetaminophen (Ofirmev 1000mg/ 100ml Iv) 100 ml @ 400 mls/hr Q6H PRN IVPB PAIN Last administered on 11/29/16 20:17; Admin Dose 400 MLS/HR; Start at 12:30 Morphine Sulfate (morphine) 2 mg Q3H PRN IM PAIN 7-10 Last administered on 11/30 10:49; Admin Dose 2 MG; Start 11/28/16 at 08:30 Morphine Sulfate (morphine) 2 mg Q4H PRN IV PAIN SCALE 4-6 Last administered on 12/04/16 08:56; Admin Dose 2 MG; Start 12/01/16 at 15:30 Morphine Sulfate (morphine) 4 mg Q4H PRN IV PAIN SCALE 7-10; Start 12/01/16 at 15:30 CLAY HARDY Dec 04, 2016 11:21
--- NOTE | 2016-12-04 12:43 | PN ---
Date/Time of Note Date/Time of Note DATE: 12/04/16 TIME: 12:42 Assessment/Plan VTE Prophylaxis VTE Prophylaxis Intervention: other Lines/Catheters [facility] Peripheral IV Urinary Cath still in place: No Assessment/Plan Chief Complaint/Hosp Course -Mild hypokalemia, potassium replaced. -Bradycardia, Dr. Benoit is following in cardiology consultation, continue telemetry monitoring. Troponin is negative, ejection fraction is 60%. -Status post ileostomy reversal by Dr. Hudson on 11/27. Continue morphine and Toradol for pain. Follow-up surgery recommendations. -History of rectal cancer, status post resection, and chemotherapy. -BPH. Problems: Subjective 24 Hr Interval Summary Free Text/Dictation Patient has no complaints Exam/Review of Systems Vital Signs Vitals Vital Signs Date Time Temp Pulse Resp B/P Pulse Ox O2 Delivery O2 Flow Rate FiO2 12/04/16 11:31 98.3 59 18 133/78 100 12/01/16 08:17 Nasal Cannula 2.0 Intake and Output 12/03/16 12/03/16 12/04/16 15:00 23:00 07:00 Intake Total 1360 ml Output Total 5 ml 4 ml Balance -5 ml 1356 ml Exam Constitutional: well developed Head: atraumatic, normocephalic Neck: supple Respiratory: clear to auscultation Cardiovascular: regular rate and rhythm Gastrointestinal: non-tender, soft Extremities: normal pulses Results Result Diagram: 12/03/16 0705 12/04/16 0659 Results 24 hrs Laboratory Tests Test 12/04/16 06:59 Sodium Level 143 Potassium Level 3.5 Chloride Level 104 Carbon Dioxide Level 24 Anion Gap 19 H Blood Urea Nitrogen < 2 L Creatinine 0.69 Glucose Level 114 # Calcium Level 9.2 Medications Medications Current Medications Ondansetron HCl 4 mg 4 mg Q6H PRN IV NAUSEA AND/OR VOMITING Last administered on 12/02/16 02:29; Admin Dose 4 MG; Start 11/27/16 at 12:30 Potassium Chloride/Dextrose/ Sod Cl 1,000 ml @ 125 mls/hr Q8H IV Last administered on 12/04/16 12:21; Admin Dose 125 MLS/HR; Start 11/27/16 at 12:20 Acetaminophen (Ofirmev 1000mg/ 100ml Iv) 100 ml @ 400 mls/hr Q6H PRN IVPB PAIN Last administered on 11/29/16 20:17; Admin Dose 400 MLS/HR; Start at 12:30 Morphine Sulfate (morphine) 2 mg Q3H PRN IM PAIN 7-10 Last administered on 11/30 10:49; Admin Dose 2 MG; Start 11/28/16 at 08:30 Morphine Sulfate (morphine) 2 mg Q4H PRN IV PAIN SCALE 4-6 Last administered on 12/04/16 08:56; Admin Dose 2 MG; Start 12/01/16 at 15:30 Morphine Sulfate (morphine) 4 mg Q4H PRN IV PAIN SCALE 7-10; Start 12/01/16 at 15:30 DEJUAN RASHID Dec 04, 2016 12:43
[2016-12-04] MEDS ORDERED: DIATR MEGLU/DIATRIZOATE SODIUM 120 ML BTL ONE (14:31)
[2016-12-04] MEDS: ONDANSETRON 4 MG INJ IV PRN (17:09)
--- NOTE | 2016-12-04 18:02 | RADRPT ---
PROCEDURE: Small bowel follow-through. CLINICAL INDICATION: Abdomen pain. TECHNIQUE: Water-soluble contrast was administered orally and several spot and overhead radiograph s of the abdomen were obtained. COMPARISON: None. FINDINGS: A surgical drain is present in the right lower quadrant of the abdomen. The preliminary radiograph is otherwise normal. There is no small bowel displacement or mass. The small bowel folds are normal. There is no evidence of obstruction. Transit time is normal with contrast in the colon at 45 minutes. Images obtained at 60 minutes demonstrate contrast throughout the colon and the rectum. IMPRESSION: 1. Normal small bowel follow-through. RPTAT: QQ .Puneet Smith MD, MD Date Time Electronically viewed and signed by .Puneet Smith MD, on 12/04/2016 18:02 .R/
[2016-12-05] VITALS (12 sets, daily range): BP systolic 98–146; BP diastolic 58–74; PULSE 46–64; RESP 16–20
[2016-12-05] MEDS: D5W-0.45 NACL + KCL 20 MEQ 1,000 ML IV SCH ×2 (04:20→07:33)
--- NOTE | 2016-12-05 13:20 | PN ---
Date/Time of Note Date/Time of Note DATE: 12/05/16 TIME: 13:16 Assessment/Plan VTE Prophylaxis VTE Prophylaxis Intervention: ambulation Lines/Catheters IV Catheter Type (from Nrs): Peripheral IV Urinary Cath still in place: No Assessment/Plan Assessment/Plan 51 years old gentleman with status post closure of diverting loop ileostomy. Patient has tolerated soft diet today. Going to increase to regular diet and if tolerates a regular diet and had a bowel movement we can discharge patient tomorrow on Thursday. Subjective 24 Hr Interval Summary Free Text/Dictation No new complaint. Diarrhea has stopped. Yesterday he had a small bowel follow- through which did not show evidence of obstruction or leakage. Patient has been out of bed walking around. Has been passing a lot of gas. Exam/Review of Systems Vital Signs Vitals Vital Signs Date Time Temp Pulse Resp B/P Pulse Ox O2 Delivery O2 Flow Rate FiO2 12/05/16 12:00 52 12/05/16 11:31 98.3 19 108/68 98 12/01/16 08:17 Nasal Cannula 2.0 Intake and Output 12/04/16 12/04/16 12/05/16 15:00 23:00 07:00 Intake Total 1000 ml 800 ml 990 ml Output Total 20 ml Balance 1000 ml 780 ml 990 ml Exam Alert awake oriented 3. Postop day #8. Tolerated soft diet today. Vital signs are stable. WBC 8400 with normal differential. Abdomen is soft. Wound is clean. Results Result Diagram: 12/03/16 0705 12/04/16 0659 Medications Medications Current Medications Ondansetron HCl 4 mg 4 mg Q6H PRN IV NAUSEA AND/OR VOMITING Last administered on 12/04/16 17:09; Admin Dose 4 MG; Start 11/27/16 at 12:30 Acetaminophen (Ofirmev 1000mg/ 100ml Iv) 100 ml @ 400 mls/hr Q6H PRN IVPB PAIN Last administered on 11/29/16 20:17; Admin Dose 400 MLS/HR; Start at 12:30 Morphine Sulfate (morphine) 2 mg Q3H PRN IM PAIN 7-10 Last administered on 11/30 10:49; Admin Dose 2 MG; Start 11/28/16 at 08:30 Morphine Sulfate (morphine) 2 mg Q4H PRN IV PAIN SCALE 4-6 Last administered on 12/04/16 17:09; Admin Dose 2 MG; Start 12/01/16 at 15:30 Morphine Sulfate (morphine) 4 mg Q4H PRN IV PAIN SCALE 7-10; Start 12/01/16 at 15:30 SANDEE HINDS MD Dec 05, 2016 13:20
--- NOTE | 2016-12-05 13:56 | PN ---
Date/Time of Note Date/Time of Note DATE: 12/05/16 TIME: 13:55 Assessment/Plan VTE Prophylaxis VTE Prophylaxis Intervention: other Lines/Catheters IV Catheter Type (from Nrs): Peripheral IV Urinary Cath still in place: No Assessment/Plan Chief Complaint/Hosp Course -Mild hypokalemia, potassium replaced. -Bradycardia, Dr. Benoit is following in cardiology consultation, continue telemetry monitoring. Troponin is negative, ejection fraction is 60%. -Status post ileostomy reversal by Dr. Hudson on 11/27. Continue morphine and Toradol for pain. Follow-up surgery recommendations. -History of rectal cancer, status post resection, and chemotherapy. -BPH. Problems: Subjective 24 Hr Interval Summary Free Text/Dictation Patient has no complaints Exam/Review of Systems Vital Signs Vitals Vital Signs Date Time Temp Pulse Resp B/P Pulse Ox O2 Delivery O2 Flow Rate FiO2 12/05/16 12:00 52 12/05/16 11:31 98.3 19 108/68 98 12/01/16 08:17 Nasal Cannula 2.0 Intake and Output 12/04/16 12/04/16 12/05/16 15:00 23:00 07:00 Intake Total 1000 ml 800 ml 990 ml Output Total 20 ml Balance 1000 ml 780 ml 990 ml Exam Constitutional: well developed Head: atraumatic, normocephalic Neck: supple Respiratory: clear to auscultation Cardiovascular: regular rate and rhythm Gastrointestinal: non-tender, soft Extremities: normal pulses Results Result Diagram: 12/03/16 0705 12/04/16 0659 Medications Medications Current Medications Ondansetron HCl 4 mg 4 mg Q6H PRN IV NAUSEA AND/OR VOMITING Last administered on 12/04/16 17:09; Admin Dose 4 MG; Start 11/27/16 at 12:30 Acetaminophen (Ofirmev 1000mg/ 100ml Iv) 100 ml @ 400 mls/hr Q6H PRN IVPB PAIN Last administered on 11/29/16 20:17; Admin Dose 400 MLS/HR; Start at 12:30 Morphine Sulfate (morphine) 2 mg Q3H PRN IM PAIN 7-10 Last administered on 11/30 10:49; Admin Dose 2 MG; Start 11/28/16 at 08:30 Morphine Sulfate (morphine) 2 mg Q4H PRN IV PAIN SCALE 4-6 Last administered on 12/04/16t 17:09; Admin Dose 2 MG; Start 12/01/16 at 15:30 Morphine Sulfate (morphine) 4 mg Q4H PRN IV PAIN SCALE 7-10; Start 12/01/16 at 15:30 DEJUAN RASHID Dec 05, 2016 13:56
--- NOTE | 2016-12-05 15:40 | CONS ---
Date/Time of Note Date/Time of Note DATE: 12/05/16 TIME: 15:38 Assessment/Plan Assessment/Plan Chief Complaint/Hosp Course IMP: 1.BRadycardia-mainly in 50's with stable BP. No indication for PPM at this time 2.abnl ecg-negative trop's/NL EF 3.s/p reversal of illeostomy 4. H/O colon ca 5. Loose stools REcc: -Tele -Follow BP/HR closely -F/U c.diff -pain control -follow volume status clsoely Problems: Consultation Date/Type/Reason Admit Date/Time Nov 27, 2016 at 09:45 Initial Consult Date 11/28/2016 Type of Consultation: cardiology Reason for Consultation bradycardia Referring Provider: MIKE WOODS MD Exam/Review of Systems Vital Signs Vitals Vital Signs Date Time Temp Pulse Resp B/P Pulse Ox O2 Delivery O2 Flow Rate FiO2 12/05/16 12:00 52 12/05/16 11:31 98.3 19 108/68 98 12/01/16 08:17 Nasal Cannula 2.0 Intake and Output 12/04/16 12/04/16 12/05/16 15:00 23:00 07:00 Intake Total 1000 ml 800 ml 990 ml Output Total 20 ml Balance 1000 ml 780 ml 990 ml Exam Review of Systems: CONSTITUTIONAL: No fevers, chills. PULMONARY: No sob CARDIOVASCULAR: No chest pain/palpitations GASTROINTESTINAL: No nausea/vomiting. GENITOURINARY: No hematuria/dysuria. MUSCULOSKELETAL: No myagias/arthalgias. PSYCHIATRIC: The patient denies depression. NEUROLOGIC: No weakness Constitutional: alert Psych: no complaints Head: normocephalic ENMT: mucosa pink and moist Neck: jvd (8-9 cm water), supple Respiratory: clear to auscultation Cardiovascular: regular rate and rhythm Gastrointestinal: other (surgical wound c/d/i), tender Musculoskeletal: muscle tone (normal) Extremities: edema (none) Neurological: other (No focal deficits) Results Result Diagram: 12/03/16 0705 12/04/16 0659 Medications Medications Current Medications Ondansetron HCl 4 mg 4 mg Q6H PRN IV NAUSEA AND/OR VOMITING Last administered on 12/04/16t 17:09; Admin Dose 4 MG; Start 11/27/16 at 12:30 Acetaminophen (Ofirmev 1000mg/ 100ml Iv) 100 ml @ 400 mls/hr Q6H PRN IVPB PAIN Last administered on 11/29/16 20:17; Admin Dose 400 MLS/HR; Start at 12:30 Morphine Sulfate (morphine) 2 mg Q3H PRN IM PAIN 7-10 Last administered on 11/30 10:49; Admin Dose 2 MG; Start 11/28/16 at 08:30 Morphine Sulfate (morphine) 2 mg Q4H PRN IV PAIN SCALE 4-6 Last administered on 12/04/16 17:09; Admin Dose 2 MG; Start 12/01/16 at 15:30 Morphine Sulfate (morphine) 4 mg Q4H PRN IV PAIN SCALE 7-10; Start 12/01/16 at 15:30 CLAY HARDY Dec 05, 2016 15:40
[2016-12-06] VITALS (9 sets, daily range): BP systolic 97–121; BP diastolic 56–77; PULSE 44–57; RESP 16–19
[2016-12-06 08:06] LABS: BASOPHIL # 0.1 10^3/ul (0.0-0.1); BASOPHILS % 0.6 % (0.0-2.0); EOSINOPHILS # 0.2 10^3/ul (0.0-0.5); EOSINOPHILS % 2.2 % (0.0-7.0); HEMATOCRIT 38.3 % (42.0-52.0); HEMOGLOBIN 13.1 g/dl (14.0-18.0); LYMPHOCYTES # 1.5 10^3/ul (0.8-2.9); LYMPHOCYTES % 18.7 % (15.0-51.0); MEAN CORPUSCULAR HEMOGLOBIN 31.3 pg (29.0-33.0); MEAN CORPUSCULAR HGB CONC 34.2 g/dl (32.0-37.0); MEAN CORPUSCULAR VOLUME 91.6 fl (82.0-101.0); MEAN PLATELET VOLUME 11.6 fl (7.4-10.4); MONOCYTE # 0.7 10^3/ul (0.3-0.9); MONOCYTES % 8.2 % (0.0-11.0); NEUTROPHIL # 5.7 10^3/ul (1.6-7.5); NEUTROPHILS % 69.8 % (39.0-77.0); POSITIVE DIFF @See below; RED BLOOD COUNT 4.18 10^6/ul (4.70-6.10); RED CELL DISTRIBUTION WIDTH 12.8 % (11.5-14.5); WHITE BLOOD COUNT 8.1 10^3/ul (4.8-10.8)
[2016-12-06 08:19] LABS: PLATELET COUNT 179 10^3/UL (140-415)
[2016-12-06 08:34] LABS: CALCIUM 9.4 mg/dl (8.4-10.2); CREATININE 0.76 mg/dl (0.61-1.24); POTASSIUM 3.6 mmol/L (3.5-5.1)
--- NOTE | 2016-12-06 11:33 | PN ---
Date/Time of Note Date/Time of Note DATE: 12/06/16 TIME: 11:33 Assessment/Plan VTE Prophylaxis VTE Prophylaxis Intervention: other Lines/Catheters IV [facility] Type (from [facility] Saline Lock Urinary Cath still in place: No Assessment/Plan Chief Complaint/Hosp Course -Mild hypokalemia, potassium replaced. -Bradycardia, Dr. Benoit is following in cardiology consultation, continue telemetry monitoring. Troponin is negative, ejection fraction is 60%. -Status post ileostomy reversal by Dr. Hudson on 11/27. Continue morphine and Toradol for pain. Follow-up surgery recommendations. -History of rectal cancer, status post resection, and chemotherapy. -BPH. Problems: Subjective 24 Hr Interval Summary Free Text/Dictation Patient has no complaints Exam/Review of Systems Vital Signs Vitals Vital Signs Date Time Temp Pulse Resp B/P Pulse Ox O2 Delivery O2 Flow Rate FiO2 12/06/16 08:08 50 12/06/16 07:41 98.3 19 109/69 96 Intake and Output 12/05/16 12/05/16 12/06/16 15:00 23:00 07:00 Intake Total 600 ml 600 ml 400 ml Output Total 5 ml Balance 600 ml 595 ml 400 ml Exam Constitutional: well developed Head: atraumatic, normocephalic Neck: supple Respiratory: clear to auscultation Cardiovascular: regular rate and rhythm Gastrointestinal: non-tender, soft Extremities: normal pulses Results Result Diagram: 12/06/16 0702 12/06/16 0702 Results 24 hrs Laboratory Tests Test 12/06/16 07:02 White Blood Count 8.1 Red Blood Count 4.18 L Hemoglobin 13.1 L Hematocrit 38.3 L Mean Corpuscular Volume 91.6 Mean Corpuscular Hemoglobin 31.3 Mean Corpuscular Hemoglobin Concent 34.2 Red Cell Distribution Width 12.8 Platelet Count 179 # Mean Platelet Volume 11.6 H Neutrophils % 69.8 Lymphocytes % 18.7 Monocytes % 8.2 Eosinophils % 2.2 Basophils % 0.6 Nucleated Red Blood Cells % 0.0 Neutrophils # 5.7 Lymphocytes # 1.5 Monocytes # 0.7 Eosinophils # 0.2 Basophils # 0.1 Nucleated Red Blood Cells # 0.0 Sodium Level 143 Potassium Level 3.6 Chloride Level 102 Carbon Dioxide Level 24 Anion Gap 21 H Blood Urea Nitrogen 8 Creatinine 0.76 Glucose Level 98 Calcium Level 9.4 Medications Medications Current Medications Ondansetron HCl 4 mg 4 mg Q6H PRN IV NAUSEA AND/OR VOMITING Last administered on 12/04/16 17:09; Admin Dose 4 MG; Start 11/27/16 at 12:30 Acetaminophen (Ofirmev 1000mg/ 100ml Iv) 100 ml @ 400 mls/hr Q6H PRN IVPB PAIN Last administered on 11/29/16 20:17; Admin Dose 400 MLS/HR; Start at 12:30 Morphine Sulfate (morphine) 2 mg Q3H PRN IM PAIN 7-10 Last administered on 11/30 10:49; Admin Dose 2 MG; Start 11/28/16 at 08:30 Morphine Sulfate (morphine) 2 mg Q4H PRN IV PAIN SCALE 4-6 Last administered on 12/04/16 17:09; Admin Dose 2 MG; Start 12/01/16 at 15:30 Morphine Sulfate (morphine) 4 mg Q4H PRN IV PAIN SCALE 7-10; Start 12/01/16 at 15:30 DEJUAN RASHID Dec 06, 2016 11:33
--- NOTE | 2016-12-06 12:38 | CONS ---
Date/Time of Note Date/Time of Note DATE: 12/06/16 TIME: 12:36 Assessment/Plan Assessment/Plan Additional Assessment/Plan 1.Bradycardia-mainly in 50's with stable BP. No indication for PPM at this time - rate controlled now. 2.abnl ecg-negative trop's/NL EF - no Cp - doubt ischemia 3.s/p reversal of illeostomy - tolerated well 4. H/O colon ca - post op 5. Loose stools Consultation Date/Type/Reason Admit Date/Time Nov 27, 2016 at 09:45 Initial Consult Date Type of Consultation: cardiology Referring Provider: MIKE WOODS MD 24 HR Interval Summary Free Text/Dictation NO acute events - BP in good range now ROS: No fever, no chills, no nausea, no vomiting, no diarrhea/constipation No recent weight changes No chest pain, no PND, no orthopnea No dizziness, blurred vision No thirst, no heat or cold intolerance Exam/Review of Systems Vital Signs Vitals Vital Signs Date Time Temp Pulse Resp B/P Pulse Ox O2 Delivery O2 Flow Rate FiO2 12/06/16 12:14 57 12/06/16 11:50 98.0 19 106/60 96 Intake and Output 12/05/16 12/05/16 12/06/16 15:00 23:00 07:00 Intake Total 600 ml 600 ml 400 ml Output Total 5 ml Balance 600 ml 595 ml 400 ml Exam General: WN/WD/NAD, AOx 3 HEENT: Unicetric/atraumatic/EOMI ( follow commands) NECK: JVD elevated, no thyromegaly Lymph: no lymphadenopathy HEART: regular with no S3, II/ systolic murmur at apex LUNGS: Coarse sounds ABD: soft, NT, ND, +BS : Intact Neuro: non focal SKIN: chronic changes EXT: trace edema Results Result Diagram: 12/06/16 0712/06/16 07 Results 24 hrs Laboratory Tests Test 12/06/16 07:02 White Blood Count 8.1 Red Blood Count 4.18 L Hemoglobin 13.1 L Hematocrit 38.3 L Mean Corpuscular Volume 91.6 Mean Corpuscular Hemoglobin 31.3 Mean Corpuscular Hemoglobin Concent 34.2 Red Cell Distribution Width 12.8 Platelet Count 179 # Mean Platelet Volume 11.6 H Neutrophils % 69.8 Lymphocytes % 18.7 Monocytes % 8.2 Eosinophils % 2.2 Basophils % 0.6 Nucleated Red Blood Cells % 0.0 Neutrophils # 5.7 Lymphocytes # 1.5 Monocytes # 0.7 Eosinophils # 0.2 Basophils # 0.1 Nucleated Red Blood Cells # 0.0 Sodium Level 143 Potassium Level 3.6 Chloride Level 102 Carbon Dioxide Level 24 Anion Gap 21 H Blood Urea Nitrogen 8 Creatinine 0.76 Glucose Level 98 Calcium Level 9.4 Medications Medications Current Medications Ondansetron HCl 4 mg 4 mg Q6H PRN IV NAUSEA AND/OR VOMITING Last administered on 12/04/16 17:09; Admin Dose 4 MG; Start 11/27/16 at 12:30 Acetaminophen (Ofirmev 1000mg/ 100ml Iv) 100 ml @ 400 mls/hr Q6H PRN IVPB PAIN Last administered on 11/29/16 20:17; Admin Dose 400 MLS/HR; Start at 12:30 Morphine Sulfate (morphine) 2 mg Q3H PRN IM PAIN 7-10 Last administered on 11/30 10:49; Admin Dose 2 MG; Start 11/28/16 at 08:30 Morphine Sulfate (morphine) 2 mg Q4H PRN IV PAIN SCALE 4-6 Last administered on 12/04/16 17:09; Admin Dose 2 MG; Start 12/01/16 at 15:30 Morphine Sulfate (morphine) 4 mg Q4H PRN IV PAIN SCALE 7-10; Start 12/01/16 at 15:30 AMADOR SANDERS MD Dec 06, 2016 12:37
[2016-12-06] MEDS: morphine 2 MG INJ IV PRN (14:28)
--- NOTE | 2016-12-06 15:07 | PN ---
Date/Time of Note Date/Time of Note DATE: 12/06/16 TIME: 14:53 Assessment/Plan VTE Prophylaxis VTE Prophylaxis Intervention: ambulation Lines/Catheters IV [facility] Type (from [email or web address] Saline Lock Urinary Cath still in place: No Assessment/Plan Assessment/Plan P.O.D. #9 Has tolerated reg. diet. has had formed B.M. Pt. can be dischared home today, J.P. drain will be removed by Dr. Hudson in his office next week Subjective 24 Hr Interval Summary Free Text/Dictation NO SPECIFIC COMPLAINT. HAS TOLERATED REGULAR DIET STILL HAS KIND OF LOOSE b.m. Exam/Review of Systems Vital Signs Vitals Vital Signs Date Time Temp Pulse Resp B/P Pulse Ox O2 Delivery O2 Flow Rate FiO2 12/06/16 12:14 57 12/06/16 11:50 98.0 19 106/60 96 Intake and Output 12/05/16 12/05/16 12/06/16 15:00 23:00 07:00 Intake Total 600 ml 600 ml 400 ml Output Total 5 ml Balance 600 ml 595 ml 400 ml Exam V.S. are stable sbdomen is soft,dressing changed, wound is clean Results Result Diagram: 12/06/16 0702 12/06/16 0702 Results 24 hrs Laboratory Tests Test 12/06/16 07:02 White Blood Count 8.1 Red Blood Count 4.18 L Hemoglobin 13.1 L Hematocrit 38.3 L Mean Corpuscular Volume 91.6 Mean Corpuscular Hemoglobin 31.3 Mean Corpuscular Hemoglobin Concent 34.2 Red Cell Distribution Width 12.8 Platelet Count 179 # Mean Platelet Volume 11.6 H Neutrophils % 69.8 Lymphocytes % 18.7 Monocytes % 8.2 Eosinophils % 2.2 Basophils % 0.6 Nucleated Red Blood Cells % 0.0 Neutrophils # 5.7 Lymphocytes # 1.5 Monocytes # 0.7 Eosinophils # 0.2 Basophils # 0.1 Nucleated Red Blood Cells # 0.0 Sodium Level 143 Potassium Level 3.6 Chloride Level 102 Carbon Dioxide Level 24 Anion Gap 21 H Blood Urea Nitrogen 8 Creatinine 0.76 Glucose Level 98 Calcium Level 9.4 Medications Medications Current Medications Ondansetron HCl 4 mg 4 mg Q6H PRN IV NAUSEA AND/OR VOMITING Last administered on 12/04/16t 17:09; Admin Dose 4 MG; Start 11/27/16 at 12:30 Acetaminophen (Ofirmev 1000mg/ 100ml Iv) 100 ml @ 400 mls/hr Q6H PRN IVPB PAIN Last administered on 11/29/16 20:17; Admin Dose 400 MLS/HR; Start at 12:30 Morphine Sulfate (morphine) 2 mg Q3H PRN IM PAIN 7-10 Last administered on 11/30 10:49; Admin Dose 2 MG; Start 11/28/16 at 08:30 Morphine Sulfate (morphine) 2 mg Q4H PRN IV PAIN SCALE 4-6 Last administered on 12/06/16 14:28; Admin Dose 2 MG; Start 12/01/16 at 15:30 Morphine Sulfate (morphine) 4 mg Q4H PRN IV PAIN SCALE 7-10; Start 12/01/16 at 15:30 SANDEE HINDS MD Dec 06, 2016 15:03
== END 2016-12-06 16:09 | disposition home or self-care (01) | DRG 331 ==
LOC: REC 11-27 09:45 → EDSTATUS 11-27 10:30 → MS2 11-27 15:50 → MS4 11-28 15:55
PROVIDERS: ADMIT Surgery Surgical Oncology; ATTEND Surgery Surgical Oncology
PROC: 0DBB0ZZ Excision of Ileum, Open Approach (ICD-10-PCS; principal; 2016-11-27 12:00)
DX: Z43.2 Encounter for attention to ileostomy (principal); R00.1 Bradycardia, unspecified; T40.2X5A Adverse effect of other opioids, initial encounter; Y92.239 Unspecified place in hospital as the place of occurrence of the external cause; N40.0 Benign prostatic hyperplasia without lower urinary tract symptoms; D72.829 Elevated white blood cell count, unspecified; E87.6 Hypokalemia; R94.31 Abnormal electrocardiogram [ECG] [EKG]; R19.7 Diarrhea, unspecified; Z85.048 Personal history of other malignant neoplasm of rectum, rectosigmoid junction, and anus; Z92.21 Personal history of antineoplastic chemotherapy; Z92.3 Personal history of irradiation; Z87.891 Personal history of nicotine dependence
CPT/HCPCS: 74250; 80048; 80061; 83735; 84100; 84443; 84484; 85025; 85610; 85730; 87045; 87075; 88305; 93005; 93306; J0131; J0295; J0690; J1170; J1885; J2270; J2405; J2543; J3010; J3480; J7030; J7999

== ENCOUNTER 2018-04-30 14:58 | Inpatient (IN) | END 2018-05-01 16:50 | disposition home or self-care (01) | DRG 390 ==